=== PATIENT | female | born 1990 | race Caucasian/White ===

== ENCOUNTER → 2016-04-14 | Outpatient (CLI) | payer BC, OTHER ==
[~2016-04-14] MED LIST: CITA10TA8 PO; FENO48TA9 PO; NORGTAB39 PO
[2016-04-14 12:41] LABS: ALKALINE PHOSPHATASE 57 U/L (45-117); ALT/SGPT 28 U/L (12-78); AST/SGOT 20 U/L (15-37); BLOOD UREA NITROGEN 13 mg/dl (7-18); CALCIUM 8.9 mg/dl (8.5-10.1); CARBON DIOXIDE 23 mmol/L (21-32); CHLORIDE 108 mmol/L (98-107); CREATININE 0.75 mg/dl (0.60-1.20); GLUCOSE 98 mg/dl (70-99); HDL CHOLESTEROL 38 mg/dl; POTASSIUM 3.9 mmol/L (3.5-5.1); SODIUM 141 mmol/L (136-145)
[2016-04-14 12:58] LABS: ESTIMATED AVERAGE GLUCOSE 117 mg/dl; HA1C FLAG Normal (Normal)
[2016-04-14 13:04] LABS: CHOLESTEROL 147 mg/dl (0-200); CHOLESTEROL/HDL RATIO 3.9; LDL CHOLESTEROL CALCULATED 77 mg/dl; TRIGLYCERIDES 161 mg/dl (0-150); VERY LOW DENSITY LIPOPROT CALC 32 mg/dl
== END | disposition home or self-care (01) ==
LOC: C.LABBFT 09:00
PROVIDERS: ATTEND Nurse Practitioner
DX: E78.1 Pure hyperglyceridemia (principal); E88.81 Metabolic syndrome and other insulin resistance; N93.9 Abnormal uterine and vaginal bleeding, unspecified

== ENCOUNTER 2017-02-20 14:46 | Emergency (ER) | payer OTHER ==
[~2017-02-20] VITALS: Ht 152.4 cm; Wt 123.1 kg
[~2017-02-20 14:46] MED LIST changes: +ESCI1TAB10 PO; +GLC/500 PO; +MULT-506 PO; -NORGTAB39 PO
[2017-02-20 14:51] VITALS: TEMP 36.7; Ht 152.4 cm; Wt 123.1 kg
[2017-02-20] MEDS ORDERED: SODIUM CHLORIDE 0.9% 1000ML 1,000 ML IV STA (15:12)
[2017-02-20] MEDS ORDERED: MoRPHine SULFATE 2 MG/ML CARP IV STA (15:12)
[2017-02-20] MEDS ORDERED: ONDANSETRON INJ 2 MG/ML 2 ML VIAL IV STA (15:12)
[2017-02-20 15:32] LABS: URINE APPEARANCE CLEAR (CLEAR); URINE BILIRUBIN NEG (NEG); URINE COLOR YELLOW; URINE NITRITE NEG (NEG); URINE PH 7.5 (4.5-7.5); URINE SPECIFIC GRAVITY 1.011 (1.000-1.030); UROBILINOGEN NEG (NEG)
[2017-02-20 15:33] LABS: MANUAL MICROSCOPIC REQUIRED? NO; REVIEW REQ? NO
--- NOTE | 2017-02-20 15:33 | DIAGNOSTIC IMAGING REPORT ---
CHEST ONE VIEW PORTABLE HISTORY: 26 years-old Female CHEST PAIN acute atypical chest pain with shortness of breath COMPARISON: Chest radiograph 08/12/2014 TECHNIQUE: Portable upright AP view of the chest FINDINGS: Cardiac silhouette upper limits of normal. No pneumothorax, pleural effusion, focal airspace consolidation or overt pulmonary edema. Bones of the chest appear grossly intact. IMPRESSION: No acute cardiopulmonary process. The above report was generated using voice recognition software. It may contain grammatical, syntax or spelling errors. Electronically signed by: Javi Farfan M.D. 02/20/2017 3:32 PM Dictated Date/Time: 02/20/2017 3:31 PM
[2017-02-20 15:57] LABS: POINT OF CARE TROPONIN I < 0.030 ng/ml (0-0.045)
[2017-02-20 16:00] LABS: BASO % 0.7 %; BASO ABS # 0.09 K/uL (0-0.2); COMPLETE YES; EOS % 4.7 %; HEMATOCRIT 38.8 % (37-47); IG% 0.2 %; LYMPH % 34.3 %; LYMPH ABS # 4.15 K/uL (1.2-3.4); MEAN CORPUSCULAR HEMOGLOBIN 29.7 pg (25-34); MEAN CORPUSCULAR HGB CONC 34.5 g/dl (32-36); MEAN PLATELET VOLUME 9.2 fL (7.4-10.4); MONO % 6.1 %; PLATELET COUNT 326 K/uL (130-400); RED BLOOD COUNT 4.51 M/uL (4.2-5.4); WHITE BLOOD COUNT 12.09 K/uL (4.8-10.8)
[2017-02-20 16:15] LABS: ALT/SGPT 52 U/L (12-78); AST/SGOT 33 U/L (15-37); BLOOD UREA NITROGEN 13 mg/dl (7-18); BUN/CREATININE RATIO 18.3 (10-20); CALCIUM 9.1 mg/dl (8.5-10.1); CARBON DIOXIDE 29 mmol/L (21-32); CHLORIDE 104 mmol/L (98-107); CREATININE 0.73 mg/dl (0.60-1.20); GLUCOSE 107 mg/dl (70-99); POTASSIUM 3.7 mmol/L (3.5-5.1); SODIUM 139 mmol/L (136-145)
[2017-02-20 16:18] LABS: ALKALINE PHOSPHATASE 64 U/L (45-117)
[2017-02-20 16:27] LABS: PREG INTERNAL NEGATIVE QC NEG CLEAR BACKGROUND; PREG INTERNAL POSITIVE QC POS CONTROL LINE
[2017-02-20] MEDS ORDERED: OPTIRAY 320 IV PRN (16:30)
--- NOTE | 2017-02-20 17:24 | DIAGNOSTIC IMAGING REPORT ---
CT ANGIOGRAPHY OF THE CHEST, PULMONARY EMBOLUS PROTOCOL CLINICAL HISTORY: Chest pain and elevated d-dimer. Shortness of breath. COMPARISON STUDY: Chest CT August 12, 2014 and chest radiograph performed earlier today. TECHNIQUE: Following IV administration of 102 mL of Optiray-320, helical axial images of the chest were obtained utilizing the pulmonary embolus protocol. Maximal intensity projections and sagittal and coronal reformats were viewed on an independent 3D workstation. IV contrast was administered without complication. A dose lowering technique was utilized adhering to the principles of ALARA. CT DOSE: 574.09 mGy.cm FINDINGS: No pulmonary emboli are identified. Size of the heart is at the upper limits of normal. There is no evidence of thoracic aortic dissection. No enlarged thoracic lymph nodes are present. Central airways are patent. No pneumothorax or pleural effusion is present. There is no consolidation to suggest pneumonia. Fatty infiltration of the liver is noted. IMPRESSION: 1. No pulmonary emboli identified. 2. No acute intrathoracic findings. 3. Fatty infiltration of the liver. Electronically signed by: Gilberto Fontaine M.D. 02/20/2017 5:23 PM Dictated Date/Time: 02/20/2017 5:14 PM
[2017-02-20 18:00] VITALS: BP 128/68; PULSE 69; O2SAT 100
--- NOTE | 2017-02-20 21:04 | EMERGENCY ROOM VISIT NOTE ---
ED Visit Note First contact with patient: 14:57 Chief Complaint: I'm having chest pain and shortness of breath. History of Present Illness: Ms. Graham is a 26 year-old white female who ambulates into the ED accompanied by female friend complaining of chest pain and shortness of breath. Historically patient reports denies history of heart disease and family heart disease. She does have a history of diabetes and hypertension. Patient reports going to bed last evening approximately 10 PM, approximate 15 hours ago, and as she was lying down she developed an achy pain over the right sternal border and started feeling short of breath. Since that time her pain has been constant but gradually return increasing in intensity. She did not take any medications for her symptoms prior to arrival at the hospital. Patient reports since waking this morning her pain has become sharp at the same location and is radiating into the thoracic back. Currently she rates her discomfort 7/10. Her pain worsens with palpation of the chest wall. She has not identified any alleviating factors related to the pain. Associated with her pain she feel reports she has been having intermittent and transient episodes of palpitations, she has been nauseated but has not vomited. And notes that she has had swelling of her fingers over the last few days. She denies fevers, chills, sweats, skin eruptions, skin color changes, lightheadedness, dizziness, upper respiratory tract symptoms, orthopnea, previous clots, claudication, cramping, recent surgery/inactivity/extended travel, estrogen and tobacco use, abdominal pain. Review of Systems: As noted above in history of present illness. All body systems were reviewed and found to be negative as noted above. Past Medical History: As noted above and pneumonia, pyelonephritis and status post section, partial nephrectomy and wisdom teeth extraction. Current Medications: Lexapro, Glucophage, TriCor and multivitamins. Allergies to Medications: Bactrim. Social History: She is currently employed; she feels safe in her home environment; she admits to tobacco and alcohol use. Physical Examination: Vital Signs: Date Time Temp Pulse Resp B/P (MAP) Pulse Ox O2 Delivery O2 Flow Rate FiO2 02/20/17 18:00 69 20 128/68 100 Room Air 02/20/17 16:30 74 18 128/71 99 02/20/17 15:15 70 02/20/17 14:51 36.7 80 17 137/70 99 Room Air GENERAL: 26-year-old female in mild distress due to pain, nontoxic-appearing, afebrile and hemodynamically stable. NEUROLOGICAL: Awake, alert and oriented to person, place and time. Answering questions appropriately and following commands. Normal gait. Good hand eye coordination. SKIN: Warm, dry and pink. No soft tissue eruptions or trauma noted. HEENT: Atraumatic and normocephalic. PERRLA. Sclera white and conjunctiva pink. Oral cavity moist and pink. Pharynx is nonerythematous or edematous. Speech normal. No lymphadenopathy. Trachea midline. No jugular venous distention. No carotid bruits. BACK: No tenderness over the bony spine. Tenderness in the right paraspinous muscles just lateral to the spine of the scapula. No palpable spasm. No CVA tenderness. THORAX: Lungs sounds are clear to auscultation and equal bilaterally with symmetrical chest wall. No wheezing, rales or rhonchi. Moderate tenderness over the right sternal border without bony deformity, bony crepitus, ecchymosis , swelling or subcutaneous air. HEART: Regular rate and rhythm. No gallops, rubs or murmurs are appreciated. No lifts, heaves or thrills. PMI is not displaced. ABDOMEN: Obese, soft and nontender. Positive bowel sounds in all quadrants. No guarding, rigidity or organomegaly. EXTREMITIES: Moves all extremities well on command and with purpose. All distal neurovascular statuses are intact and equal bilaterally. No dependent edema or calf tenderness/cords. ED Course: Patient is assessed as noted above. Laboratory Testing: Test 02/20/17 15:05 02/20/17 15:30 02/20/17 15:37 Range/Units Urine Color YELLOW Urine Appearance CLEAR CLEAR Urine pH 7.5 4.5-7.5 Urine Specific Upper Tract 1.011 1.000-1.030 Urine Protein NEG NEG Urine Glucose (UA) NEG NEG Urine Ketones NEG NEG Urine Occult Blood NEG NEG Urine Nitrite NEG NEG Urine Bilirubin NEG NEG Urine Urobilinogen NEG NEG Urine Leukocyte Esterase NEG NEG White Blood Count 12.09 4.8-10.8 K/uL Red Blood Count 4.51 4.2-5.4 M/uL Hemoglobin 13.4 12.0-16.0 g/dL Hematocrit 38.8 37-47 % Mean Corpuscular Volume 86.0 80-100 fL Mean Corpuscular Hemoglobin 29.7 25-34 pg Mean Corpuscular Hemoglobin Concent 34.5 32-36 g/dl Platelet Count 326 130-400 K/uL Mean Platelet Volume 9.2 7.4-10.4 fL Neutrophils (%) (Auto) 54.0 % Lymphocytes (%) (Auto) 34.3 % Monocytes (%) (Auto) 6.1 % Eosinophils (%) (Auto) 4.7 % Basophils (%) (Auto) 0.7 % Neutrophils # (Auto) 6.51 1.4-6.5 K/uL Lymphocytes # (Auto) 4.15 1.2-3.4 K/uL Monocytes # (Auto) 0.74 0.11-0.59 K/uL Eosinophils # (Auto) 0.57 0-0.5 K/uL Basophils # (Auto) 0.09 0-0.2 K/uL RDW Standard Deviation 40.8 36.4-46.3 fL RDW Coefficient of Variation 13.0 11.5-14.5 % Immature Granulocyte % (Auto) 0.2 % Immature Granulocyte # (Auto) 0.03 0.00-0.02 K/uL Sodium Level 139 136-145 mmol/L Potassium Level 3.7 3.5-5.1 mmol/L Chloride Level 104 98-107 mmol/L Carbon Dioxide Level 29 21-32 mmol/L Anion Gap 6.0 3-11 mmol/L Blood Urea Nitrogen 13 7-18 mg/dl Creatinine 0.73 0.60-1.20 mg/dl Est Creatinine Clear Calc Drug Dose 139.9 ml/min Estimated GFR () 130.8 Estimated GFR (Non- 112.9 BUN/Creatinine Ratio 18.3 10-20 Random Glucose 107 70-99 mg/dl Calcium Level 9.1 8.5-10.1 mg/dl Total Bilirubin 0.4 0.2-1 mg/dl Direct Bilirubin < 0.1 0-0.2 mg/dl Aspartate Amino Transf (AST/SGOT) 33 15-37 U/L Alanine Aminotransferase (ALT/SGPT) 52 12-78 U/L Alkaline Phosphatase 64 45-117 U/L Total Protein 7.3 6.4-8.2 gm/dl Albumin 3.5 3.4-5.0 gm/dl Lipase 141 73-393 U/L Human Chorionic Gonadotropin, Qual NEG NEG Bedside D-Dimer > 450 0-450 ng/mlFEU Bedside Troponin I < 0.030 0-0.045 ng/ml EKG: Was read by myself and shows normal sinus rhythm with sinus arrhythmia. Ventricular rate 73 bpm. Normal axis, intervals and complexes. No acute ST changes indicating ischemia, injury or infarction. This was compared to previous from August 2014 in no acute changes were noted. Chest X-Rays: Were read by myself and the radiologist showing no acute infiltrates, effusions or pneumothorax. Normal heart silhouette and bony anatomy. Chest CTA: Was reviewed by myself and read by the radiologist showing no evidence of pulmonary emboli or acute intrathoracic findings. Patient was hydrated with normal saline and she received 2 mg of morphine IV for pain and 4 mg of Zofran IV. Patient was reassessed multiple times during her stay in the emergency department. Patient's case was reviewed with Dr. Mcwilliams; we agreed on diagnostic approach, treatment, disposition and plan. Patient was educated about today's findings and instructed on her treatment plan ; she verbalized understanding and agreement with this plan. Clinical Impression: Right sided chest pain. Decision-Making: A shunt my differential diagnosis I considered pulmonary embolism, musculoskeletal strain, myocarditis, pericarditis, acute coronary syndrome, thoracic aneurysm, pneumothorax and other causes. Disposition: Patient discharged home in stable condition accompanied by her ; prior to departure she was reassessed and subjectively reported she was feeling much better and rated her discomfort 2/10. She reported resolution of her shortness of breath and nausea. Plan: Patient was encouraged to alternate ibuprofen and acetaminophen as needed for pain every 3 hours. Patient was encouraged to continue her other medications as prescribed. Patient was encouraged to follow-up with family physician for recheck and possible referral to cardiology. Patient was encouraged return ED for worsening/uncontrolled pain, worsening/ uncontrolled shortness of breath, vomiting, fevers or any new/concerning symptoms.
== END 2017-02-20 18:04 | disposition home or self-care (01) ==
LOC: C.EDB 14:47 → C.EDC 18:04
DX: R07.9 Chest pain, unspecified (principal); E11.9 Type 2 diabetes mellitus without complications; I10 Essential (primary) hypertension; Z87.01 Personal history of pneumonia (recurrent); Z72.0 Tobacco use; Z79.899 Other long term (current) drug therapy

== ENCOUNTER 2020-06-23 12:44 | Observation (INO) ==
[2020-06-23] MEDS ORDERED: SODIUM CHLORIDE 0.9% 1000ML 1,000 ML IV STA (13:17)
[2020-06-23 13:49] LABS: Basophils # (auto) 0.04 K/uL (0-0.2); Basophils % (auto) 0.2 %; Eosinophils % (auto) 0.6 %; Hematocrit (blood only) 36.6 % (37-47); Immature Granulocytes # (auto) 0.05 K/uL (0.00-0.02); Immature Granulocytes % (auto) 0.3 %; Lymphocytes # (auto) 2.82 K/uL (1.2-3.4); Lymphocytes % (auto) 16.1 %; Mean Corpuscular Hemoglobin 30.4 pg (25-34); Mean Corpuscular Hgb Conc 35.5 g/dL (32-36); Mean Corpuscular Volume 85.7 fL (80-100); Monocytes # (auto) 1.37 K/uL (0.11-0.59); Monocytes % (auto) 7.8 %; Neutrophils # (auto) 13.09 K/uL (1.4-6.5); Platelet Count 392 K/uL (130-400); RDW Coefficient of Variation 13.4 % (11.5-14.5); RDW Standard Deviation 41.7 fL (36.4-46.3); Red Blood Count 4.27 M/uL (4.2-5.4); White Blood Count 17.47 K/uL (4.8-10.8)
[2020-06-23] MEDS ORDERED: ACETAMINOPHEN 1,000 MG/100 ML VIAL IV STA (13:51)
--- NOTE | 2020-06-23 13:51 | Emergency Department Note ---
Impression & Plan Pyelonephritis affecting in first trimester ED Provider Note CHIEF COMPLAINT: Right flank pain, nausea/vomiting, + HISTORY OF PRESENTING ILLNESS: This is a 30-year-old female who presents to the emergency department by private vehicle with complaint of right-sided abdominal and flank pain for the past 2 to 3 days that has been progressively worsening. She states the pain started in her right lower to mid abdomen and is now radiating up towards her right middle back, it has been constant and more severe, she currently rates the pain 6/10. She has been taking Tylenol for the pain with some improvement. She notes that her pain got significantly worse today and she has now been having a lot of nausea and vomiting, noting she has been having difficulty keeping down even fluids today. She states that she has been vomiting bile. She denies a fever or chills. She denies diarrhea or constipation. She denies any vaginal bleeding or spotting or abnormal discharge . She denies any chest pain, chest tightness, shortness of breath, dizziness or syncope. REVIEW OF SYSTEMS: A complete 10 point review of systems was reviewed with the patient with pertinent positives and negatives as per history of present illness. All else were negative. PAST MEDICAL HISTORY: Prediabetes, anxiety SOCIAL HISTORY: Lives at home, she is a current everyday smoker, but notes that she quit 2 days ago ALLERGIES: Reviewed in chart and with the PHYSICAL EXAM: CONSTITUTIONAL: Pleasant and cooperative. Nontoxic-appearing and in no acute distress. Mildly dehydrated, but otherwise well appearing and well nourished. HEENT: Normocephalic, atraumatic. Pharynx normal. Tacky mucous membranes. NECK: Supple, full active range of motion without discomfort. RESPIRATORY: Clear to auscultation bilaterally with no wheezing, crackles, rhonchi or stridor. Equal expansion bilaterally. CARDIOVASCULAR: Regular rate and rhythm with no murmurs, rubs or gallops. Normal peripheral perfusion. No edema. GASTROINTESTINAL: Tender to palpation in the suprapubic, right lower quadrant, and right flank abdomen. No rebound tenderness or guarding. Soft, nondistended, obese abdomen. No palpable masses or HSM. Bowel sounds present in all quadrants. Right-sided CVA tenderness to percussion, no left CVA tenderness. MUSCULOSKELETAL: Full range of motion of all joints without discomfort. INTEGUMENTARY: No rash or other significant dermatologic conditions noted. NEUROLOGIC: Alert and oriented X 4 with normal affect. Normal strength and sensation in all 4 extremities. Normal speech. Normal gait observed. ED COURSE AND MEDICAL DECISION MAKING: CC: Patient presenting with complaint of right flank/abdominal pain, nausea/vomiting, DIFFERENTIAL DIAGNOSIS: Includes, but not limited to UTI, pyelonephritis, ureteral stone, ectopic , threatened miscarriage, cholecystitis, cholelithiasis, pancreatitis, GERD, gastritis, gastroenteritis, hyperemesis gravidarum, dehydration, electrolyte abnormality, among others. INTERPRETATION OF LABS: Leukocytosis with left shift, no anemia, normal platelets, no significant electrolyte abnormalities, normal renal function, normal liver enzymes and lipase. Serum has approximately doubled since previous labs 2 days ago. UA appears improved, but still with WBCs, leuk esterase, and blood. COVID-19 test negative. IMAGING: ABDOMINAL ULTRASOUND, RIGHT UPPER QUADRANT HISTORY: right flank pain. COMPARISON: Abdominal ultrasound 08/07/2018. FINDINGS: Pancreas: The pancreatic head and tail are obscured by overlying bowel gas. The remaining portions of the pancreas are within normal limits. Liver: The liver is echogenic consistent with fatty change. 21 cm in length. Gallbladder: No gallbladder wall thickening. No gallstones. There are few punctate echogenic foci within the gallbladder wall with ring down artifact. This favors adenomyomatosis. CBD: 2 mm. Right kidney: Small stones within the lower pole the right kidney. No hydronephrosis. IMPRESSION: 1. Hepatomegaly demonstrating fatty change. 2. No gallbladder wall thickening. No gallstones. Suspect adenomyomatosis. 3. Right-sided nephrolithiasis. No hydronephrosis. ----- RENAL ULTRASOUND CLINICAL HISTORY: right flank pain, UTI, + preg COMPARISON STUDY: CT of the abdomen and pelvis February 09, 2017. TECHNIQUE: Sonography of the kidneys and the urinary bladder was performed. FINDINGS: Right kidney measures 13.1 cm in maximal dimension and the left measures 11.5 cm. There is mild right collecting system dilatation which is similar to CT of February 09, 2017. Multiple right renal calculi measure up to approximately 8 mm. There are no left renal calculi. Neither ureteral jet was identified. Bladder suboptimally assessed given underdistention. IMPRESSION: 1. Mild right collecting system dilatation. 2. Right-sided nephrolithiasis. ----- PELVIC ULTRASOUND CLINICAL HISTORY: right flank/abd pain, + preg COMPARISON STUDY: Pelvic ultrasound June 21, 2020. TECHNIQUE: Transabdominal and transvaginal sonography of the pelvis was performed. FINDINGS: This exam is compromised by suboptimal penetration. The uterus measures 10.6 x 5 x 5.4 cm. Endometrium measures approximately 8 mm in thickness. There is possible visualization of an intrauterine gestational sac. If this represents a gestational sac, the mean sac diameter is 0.48 cm. The right ovary measures 3 x 4.2 x 2.7 cm and the left ovary measures 3 x 2.3 x 2.2 cm. There is no adnexal mass. There is no free fluid. Color flow is identified within each ovary. IMPRESSION: 1. Exam compromised by suboptimal penetration. Possible visualization of a tiny intrauterine gestational sac with a mean sac diameter 0.48 cm. Clinical follow- up, including serial beta hCG levels, and follow-up pelvic ultrasound is recommended. 2. No adnexal mass identified. No free fluid. MEDICATION RECONCILIATION: I attest that I have personally reviewed the patient's current medication list. INITIAL VITAL SIGNS REVIEW: I reviewed the patient's initial vital signs and interpret them as follows: T: Afebrile; BP: Normotensive; HR: Mildly tachycardic; RR: Within normal limits; Pulse Ox: Within normal limits on room air. MDM SUMMARY: Patient was evaluated at bedside, history and physical exam performed. Patient is alert and oriented, in no acute distress, resting calmly in stretcher. She is afebrile and nontoxic-appearing, but does appear to be mildly dehydrated. The abdomen is tender to palpation mostly in the right flank with right-sided CVA tenderness. No acute abdomen. Review of the patient's chart, noting her recent ED visit 2 days ago. There was no identified IUP on ultrasound at the time. Beta hCG quant was 959. Urine culture was also reviewed, noting that it is positive for Proteus mirabilis, which is pansensitive. Orders were placed at bedside for labs including a repeat beta quant, UA, IV fluid bolus for hydration, IV Tylenol for pain, ultrasound imaging of the pelvic/transvaginal, right renal, and gallbladder to evaluate for right flank/abdominal pain. Given the UTI and persisting/progressing right flank and CVA tenderness, I suspect this may be a UTI progressing to pyelonephritis. 2 g IV Rocephin were ordered for this. Patient discussed with Dr. Amador, who agrees with my assessment, plan, and disposition. Labs and imaging reviewed as above, labs are notable for leukocytosis, which appears to be slightly improved from 2 days ago. Beta quant has doubled. UA appears to be improving, but still with signs of infection. Ultrasound imaging as above, gallbladder appears unremarkable. There is right- sided nephrolithiasis, but no evidence for hydronephrosis or other obstructive pattern. Pelvic ultrasound demonstrates a suspected tiny intrauterine gestational sac, there is no free fluid or adnexal mass noted. I feel it is less likely that she has an ectopic and more likely that she has pyelonephritis. The patient was discussed with Dr. Salgado, [facility], who felt it was reasonable for the patient to be admitted for her developing pyelonephritis in the setting of her . I spoke with Dr. Peacock, [facility] hospitalist, who agrees to evaluate the patient for admission. Patient reassessed multiple times throughout ED stay, she has remained hemodynamically stable and afebrile, and reports that her pain is improved after the IV Tylenol. The patient was updated on all results and plan for admission/observation, all questions were answered to the best of my ability and the patient was agreeable to this plan. The patient was stable at time of admission. The chart was completed utilizing [employer] Speech voice recognition software. Grammatical errors, random word insertions, pronoun errors, and incomplete sentences are an occasional consequence of this system due to software limitations, ambient noise, and hardware issues. Any formal questions or concerns about the content, text, or information contained within the body of this dictation should be directly addressed to the nurse practitioner for clarification. Past Med/Surg History Medical History Depression with anxiety Hypertriglyceridemia PCOS (polycystic ovarian syndrome) PNA (pneumonia) Surgical History History of kidney surgery Hx of section Family History Grandmother (Paternal) Diabetes Social History Smoking Status: Current every day smoker Tobacco Type: Cigarettes Preferred Language: Khmer Feels Safe at Home: Yes Allergies Allergies Allergy/AdvReac Type Severity Reaction Status Date / Time Bactrim Allergy Intermediate RASH Verified 02/20/17 16:13 sulfamethoxazole Allergy Intermediate RASH Verified 06/23/20 15:54 trimethoprim Allergy Intermediate RASH Verified 06/23/20 15:54 Home Meds Home Medications Medication Instructions Recorded Confirmed multivitamin 1 tab PO QAM 06/21/20 06/23/20 acetaminophen 1,000 mg PO Q6H PRN 06/23/20 06/23/20 duloxetine 40 mg PO QPM 06/23/20 06/23/20 metformin 1,000 mg PO QAM 06/23/20 06/23/20 Previous Rx's Medication Instructions Recorded norgestimate 0.18 mg/0.215 mg/0.25 1 tab PO DAILY #28 tab 01/01/20 mg-ethinyl estradiol 25 mcg tablet cephalexin 500 mg PO BID 7 Days #14 cap 06/21/20 Results & Data (ED) Vital Signs Vital Signs - 24 hr 06/23/20 12:49 06/23/20 14:50 06/23/20 15:24 Temperature 36.4 C L Temperature Source Temporal Artery Scan Pulse Rate 103 H Pulse Rate [Finger] 86 94 H Respiratory Rate 16 20 20 Respiratory Effort / Characteristics Non-Labored Spontaneous Non-Labored Spontaneous Respiratory Depth Normal Normal Respiratory Pattern Regular Blood Pressure 134/81 Blood Pressure [Right Arm] 139/81 122/76 Blood Pressure Mean 98 Blood Pressure Mean [Right Arm] 100 91 Blood Pressure Position Sitting Pulse Oximetry 100 100 99 Oxygen Delivery Method Room Air Room Air Room Air Sepsis Recent Fever Within 48 Hours No Sepsis New/Unexplained Change in Mental Status No Sepsis Action Taken by Nursing No Action Required 06/23/20 16:30 Temperature Temperature Source Pulse Rate Pulse Rate [Finger] 94 H Respiratory Rate 18 Respiratory Effort / Characteristics Non-Labored Spontaneous Respiratory Depth Normal Respiratory Pattern Regular Blood Pressure Blood Pressure [Right Arm] 104/70 Blood Pressure Mean Blood Pressure Mean [Right Arm] 81 Blood Pressure Position Pulse Oximetry 100 Oxygen Delivery Method Room Air Sepsis Recent Fever Within 48 Hours Sepsis New/Unexplained Change in Mental Status Sepsis Action Taken by Nursing Laboratory Data Result diagrams: 06/23/20 13:32 06/23/20 13:32 Lab Results 06/23/20 06/23/20 06/23/20 Range/Units 13:32 13:32 13:32 WBC 17.47 H (4.8-10.8) K/uL RBC 4.27 (4.2-5.4) M/uL Hgb 13.0 (12.0-16.0) g/dL Hct 36.6 L (37-47) % MCV 85.7 (80-100) fL MCH 30.4 (25-34) pg MCHC 35.5 (32-36) g/dL RDW Std Deviation 41.7 (36.4-46.3) fL RDW Coeff of Hai 13.4 (11.5-14.5) % Plt Count 392 (130-400) K/uL MPV 9.0 (7.4-10.4) fL Immature Gran % (Auto) 0.3 % Neut % (Auto) 75.0 % Lymph % (Auto) 16.1 % [place] % (Auto) 7.8 % Eos % (Auto) 0.6 % Baso % (Auto) 0.2 % Neut # (Auto) 13.09 H (1.4-6.5) K/uL Lymph # (Auto) 2.82 (1.2-3.4) K/uL [place] # (Auto) 1.37 H (0.11-0.59) K/uL Eos # (Auto) 0.10 (0-0.5) K/uL Baso # (Auto) 0.04 (0-0.2) K/uL Immature Gran # (Auto) 0.05 H (0.00-0.02) K/uL Sodium 137 (136-145) mmol/L Potassium 3.3 L (3.5-5.1) mmol/L Chloride 106 (98-107) mmol/L Carbon Dioxide 22 (21-32) mmol/L Anion Gap 9.0 (3-11) BUN 10 (7-18) mg/dl Creatinine 0.70 (0.6-1.2) mg/dl Est Cr Clr Drug Dosing 127.1 ml/min Est GFR ( Amer) 133.8 Est GFR (Non-Af Amer) 115.5 BUN/Creatinine Ratio 13.7 (10-20) Glucose 110 H (70-99) mg/dl Calcium 9.4 (8.5-10.1) mg/dl Total Bilirubin 0.6 (0.2-1) mg/dl AST 14 L (15-37) U/L ALT 25 (12-78) U/L Alkaline Phosphatase 65 (45-117) U/L Total Protein 7.6 (6.4-8.2) gm/dl Albumin 3.7 (3.4-5.0) gm/dl Globulin 3.9 (2.5-4.0) gm/dl Albumin/Globulin Ratio 1.0 (0.9-2) Lipase 65 L (73-393) U/L HCG, Quant 1916 mIU/ml Urine Color Urine Appearance (Clear) Urine pH (4.5-7.5) Ur Specific [place] (1.000-1.030) Urine Protein (Negative) Urine Glucose (UA) (Negative) Urine Ketones (Negative) Urine Blood (Negative) Urine Nitrite (Negative) Urine Bilirubin (Negative) Urine Urobilinogen (Negative) Ur Leukocyte Esterase (Negative) Urine WBC (Auto) (0-5) /hpf Urine RBC (Auto) (0-4) /hpf U Hyaline Cast (Auto) (0-5) /lpf U Epithel Cells (Auto) (0-5) /lpf Urine Bacteria (Auto) (Negative) COVID-19 Eval Order SARS-CoV-2, RNA, NAAT (NEGATIVE) 06/23/20 06/23/20 06/23/20 Range/Units 15:25 16:45 16:45 WBC (4.8-10.8) K/uL RBC (4.2-5.4) M/uL Hgb (12.0-16.0) g/dL Hct (37-47) % MCV (80-100) fL MCH (25-34) pg MCHC (32-36) g/dL RDW Std Deviation (36.4-46.3) fL RDW Coeff of Hai (11.5-14.5) % Plt Count (130-400) K/uL MPV (7.4-10.4) fL Immature Gran % (Auto) % Neut % (Auto) % Lymph % (Auto) % [place] % (Auto) % Eos % (Auto) % Baso % (Auto) % Neut # (Auto) (1.4-6.5) K/uL Lymph # (Auto) (1.2-3.4) K/uL [place] # (Auto) (0.11-0.59) K/uL Eos # (Auto) (0-0.5) K/uL Baso # (Auto) (0-0.2) K/uL Immature Gran # (Auto) (0.00-0.02) K/uL Sodium (136-145) mmol/L Potassium (3.5-5.1) mmol/L Chloride (98-107) mmol/L Carbon Dioxide (21-32) mmol/L Anion Gap (3-11) BUN (7-18) mg/dl Creatinine (0.6-1.2) mg/dl Est Cr Clr Drug Dosing ml/min Est GFR ( Amer) Est GFR (Non-Af Amer) BUN/Creatinine Ratio (10-20) Glucose (70-99) mg/dl Calcium (8.5-10.1) mg/dl Total Bilirubin (0.2-1) mg/dl AST (15-37) U/L ALT (12-78) U/L Alkaline Phosphatase (45-117) U/L Total Protein (6.4-8.2) gm/dl Albumin (3.4-5.0) gm/dl Globulin (2.5-4.0) gm/dl Albumin/Globulin Ratio (0.9-2) Lipase (73-393) U/L HCG, Quant mIU/ml Urine Color Yellow Urine Appearance Clear (Clear) Urine pH 6.5 (4.5-7.5) Ur Specific [place] 1.017 (1.000-1.030) Urine Protein Negative (Negative) Urine Glucose (UA) Negative (Negative) Urine Ketones 2+ H (Negative) Urine Blood 1+ H (Negative) Urine Nitrite Negative (Negative) Urine Bilirubin Negative (Negative) Urine Urobilinogen Negative (Negative) Ur Leukocyte Esterase 1+ H (Negative) Urine WBC (Auto) 10-30 H (0-5) /hpf Urine RBC (Auto) 0-4 (0-4) /hpf U Hyaline Cast (Auto) 0 (0-5) /lpf U Epithel Cells (Auto) 10-20 H (0-5) /lpf Urine Bacteria (Auto) Negative (Negative) COVID-19 [facility] SARS-CoV-2, RNA, NAAT NEGATIVE (NEGATIVE) Administered Medications Sodium Chloride (Nss 1000ml) 1,000 mls @ 999 mls/hr IV .Q1H1M ONE Stop: 06/23/20 17:35 Last Admin: 06/23/20 16:30 Dose: 999 mls/hr Documented by: Discontinued Medications Sodium Chloride (Nss 1000ml) 1,000 mls @ 999 mls/hr IV .Q1H1M STA Stop: 06/23/20 14:17 Last Infusion: 06/23/20 15:06 Dose: 0 mls/hr Documented by: [id number] Admin: 06/23/20 13:41 Dose: 999 mls/hr Documented by: [id number] Acetaminophen (Ofirmev) 1,000 mg in 100 mls @ 400 mls/hr IV NOW STA Stop: 06/23/20 14:05 Last Infusion: 06/23/20 15:06 Dose: 0 mls/hr Documented by: [id number] Admin: 06/23/20 14:50 Dose: 400 mls/hr Documented by: [id number] Ceftriaxone Sodium (Rocephin) 2,000 mg in 70 mls @ 140 mls/hr IV NOW STA Stop: 06/23/20 15:23 Last Infusion: 06/23/20 15:54 Dose: 0 mls/hr Documented by: [id number] Admin: 06/23/20 15:24 Dose: 140 mls/hr Documented by: [id number] Discharge Plan Visit Data Chief Complaint: GI Assessment Stated Complaint: 4 weeks preg, liv said monday to come lab ED Provider: Omid Amador ED Midlevel Provider: Emelia Thompson Discharge Problem: Pyelonephritis affecting in first trimester Patient Disposition: Admitted As Inpatient Condition: Good Forms Stand Alone Forms: My [facility] Prescriptions Prescriptions: No Action norgestimate-ethinyl estradiol [Lqy-Iw-Exvikc] 0.18/0.215/0.25 mg-25 mcg tablet 1 tab PO DAILY Qty: 28 RF: 11 acetaminophen 500 mg Tablet 1,000 mg PO Q6H PRN (Reason: Pain) RF: 0 metformin 500 mg tablet 1,000 mg PO QAM RF: 0 duloxetine 40 mg capsule,delayed release(DR/EC) 40 mg PO QPM RF: 0 multivitamin Tablet 1 tab PO QAM RF: 0 cephalexin 500 mg capsule 500 mg PO BID 7 Days Qty: 14 RF: 0 Referrals Referrals: Dawna Segal CRNP [Primary Care Provider] -
[2020-06-23 14:17] LABS: Albumin Level 3.7 gm/dl (3.4-5.0); BUN Creatinine Ratio 13.7 (10-20); Calcium 9.4 mg/dl (8.5-10.1); Creatinine Clr Calc Pharmacy 127.1 ml/min; Est GFR (African American) 133.8; Est GFR (Non-African American) 115.5; Potassium 3.3 mmol/L (3.5-5.1)
[2020-06-23 14:19] LABS: Bilirubin,Total 0.6 mg/dl (0.2-1); Globulin 3.9 gm/dl (2.5-4.0); Total Protein 7.6 gm/dl (6.4-8.2)
[2020-06-23] MEDS ORDERED: cefTRIAXone SODIUM 2,000 MG/70 ML BAG IV STA (14:54)
--- NOTE | 2020-06-23 15:09 | Ultrasound Report ---
ABDOMINAL ULTRASOUND, RIGHT UPPER QUADRANT HISTORY: right flank pain. COMPARISON: Abdominal ultrasound 08/07/2018. FINDINGS: Pancreas: The pancreatic head and tail are obscured by overlying bowel gas. The remaining portions of the pancreas are within normal limits. Liver: The liver is echogenic consistent with fatty change. 21 cm in length. Gallbladder: No gallbladder wall thickening. No gallstones. There are few punctate echogenic foci wit hin the gallbladder wall with ring down artifact. This favors adenomyomatosis. CBD: 2 mm. Right kidney: Small stones within the lower pole the right kidney. No hydronephrosis. IMPRESSION: 1. Hepatomegaly demonstrating fatty change. 2. No gallbladder wall thickening. No gallstones. Suspect adenomyomatosis. 3. Right-sided nephrolithiasis. No hydronephrosis. ACT 112: Negative or not required by law. Electronically signed by: Julian Brewer M.D. 06/23/2020 3:08 PM
--- NOTE | 2020-06-23 15:09 | Ultrasound Report ---
RENAL ULTRASOUND CLINICAL HISTORY: right flank pain, UTI, + preg COMPARISON STUDY: CT of the abdomen and pelvis February 09, 2017. TECHNIQUE: Sonography of the kidneys and the urinary bladder was performed. FINDINGS: Right kidney measures 13.1 cm in maximal dimension and the left measures 11.5 cm. There is mild right collecting system dilatation which is similar to CT of February 09, 2017. Multiple right re nal calculi measure up to approximately 8 mm. There are no left renal calculi. Neither ureteral jet w as identified. Bladder suboptimally assessed given underdistention. IMPRESSION: 1. Mild right collecting system dilatation. 2. Right-sided nephrolithiasis. ACT 112: Negative or not required by law. Electronically signed by: Gilberto Fontaine M.D. 06/23/2020 3:08 PM
--- NOTE | 2020-06-23 15:12 | Ultrasound Report ---
PELVIC ULTRASOUND CLINICAL HISTORY: right flank/abd pain, + preg COMPARISON STUDY: Pelvic ultrasound June 21, 2020. TECHNIQUE: Transabdominal and transvaginal sonography of the pelvis was performed. FINDINGS: This exam is compromised by suboptimal penetration. The uterus measures 10.6 x 5 x 5.4 cm. Endometrium measures approximately 8 mm in thickness. There is possible visualization of an intrauter ine gestational sac. If this represents a gestational sac, the mean sac diameter is 0.48 cm. The righ t ovary measures 3 x 4.2 x 2.7 cm and the left ovary measures 3 x 2.3 x 2.2 cm. There is no adnexal m ass. There is no free fluid. Color flow is identified within each ovary. IMPRESSION: 1. Exam compromised by suboptimal penetration. Possible visualization of a tiny intrauterine gestatio nal sac with a mean sac diameter 0.48 cm. Clinical follow-up, including serial beta hCG levels, and f ollow-up pelvic ultrasound is recommended. 2. No adnexal mass identified. No free fluid. ACT 112: Negative or not required by law. Electronically signed by: Gilberto Fontaine M.D. 06/23/2020 3:11 PM
[2020-06-23 15:54] LABS: Appearance Urine Clear (Clear); Bacteria Urine Automated Negative (Negative); Bilirubin Urine Negative (Negative); Blood Urine 1+ (Negative); Cast Urine Automated 0 /lpf (0-5); Color Urine Yellow; Glucose Urine UA Negative (Negative); Ketones Urine 2+ (Negative); Leukocyte Esterase Urine 1+ (Negative); Nitrite Urine Negative (Negative); Protein Urine Negative (Negative); RBC Urine Automated 0-4 /hpf (0-4); Specific Gravity Urine 1.017 (1.000-1.030); Urobilinogen Urine Negative (Negative); pH Urine 6.5 (4.5-7.5)
[2020-06-23] MEDS ORDERED: SODIUM CHLORIDE 0.9% 1000ML 1,000 ML IV ONE ×2 (16:35→17:34)
[2020-06-23] MEDS ORDERED: POTASSIUM CHLORIDE CRTAB 20 MEQ TABCR PO STA (17:25)
--- NOTE | 2020-06-23 17:32 | History & Physical Report ---
Date of Service June 23, 2020 Assessment & Plan (1) Acute pyelonephritis: Continue ceftriaxone 2g IV daily Pansensitive Proteus on prior urine culture. Follow up urine and blood cultures Possibly exacerbated by ureterolithiasis therefore will strain urine (2) Prediabetes: Insulin for correction factor only. BSG ACHS (3) PCOS (polycystic ovarian syndrome): Hold metformin (4) Depression with anxiety: Continue duloxetine 40mg PO HS (5) First trimester : bHCG quant in 48 hours if patient is still inpatient Admission and Anticipated Discharge Date Admission Date: 06/23/2020 History of Present Illness Chief Complaint: Right flank pain Primary Care Provider: FUENTES John Osiel Adam is a 30-year-old (LMP May 27) who presents to the ER with ongoing right flank pain. She reports her pain started 3 days ago while going on a hike and it started with umbilical abdominal pain. Initially felt this may be musculoskeletal however the pain increased over the following day and she started having nausea and vomiting starting that night. She went to the ER 2 days ago and was diagnosed with a UTI and test was positive. 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 She was not given any antibiotics in the emergency room but discharged with Keflex. Unfortunately her pain has increased at times it appears to be renal colic causing her to need to pace around the room. Severity 10/10 at worst, currently 6/10. Improved with Tylenol IV given in the ER. Given her nausea and vomiting she has not been able to drink or eat much for the last 3 days. She has a prior history of an uncomplicated UTI many years ago. Prior kidney stone as a teenager - passed by itself. Current pain is in the same location as her previous kidney stone although this pain seems to be much worse. In the ER beta-hCG is appropriately rising. Possible visualization of a tiny intrauterine gestational sac on ultrasound. Renal ultrasound showed right-sided nephrolithiasis seen with mild right collecting system dilatation. White blood count mildly improved since 2 days ago from 20.4 to 17.5. She was diagnosed with acute pyelonephritis and treated with ceftriaxone. She was referred to medicine for admission and ongoing management of acute pyelonephritis in the setting of . Allergies Allergy/AdvReac Type Severity Reaction Status Date / Time Bactrim Allergy Intermediate RASH Verified 02/20/17 16:13 sulfamethoxazole Allergy Intermediate RASH Verified 06/23/20 15:54 trimethoprim Allergy Intermediate RASH Verified 06/23/20 15:54 Home Medications Medication Instructions Recorded Confirmed Type norgestimate 0.18 mg/0.215 mg/0.25 1 tab PO DAILY #28 tab 01/01/20 06/23/20 Rx mg-ethinyl estradiol 25 mcg tablet cephalexin 500 mg PO BID 7 Days #14 cap 06/21/20 06/23/20 Rx multivitamin 1 tab PO QAM 06/21/20 06/23/20 History acetaminophen 1,000 mg PO Q6H PRN 06/23/20 06/23/20 History duloxetine 40 mg PO QPM 06/23/20 06/23/20 History metformin 1,000 mg PO QAM 06/23/20 06/23/20 History Past Med/Surg History Medical History (Updated 06/23/20 @ 21:38 by Deny Peacock MD) Depression with anxiety Hypertriglyceridemia PCOS (polycystic ovarian syndrome) PNA (pneumonia) Surgical History History of kidney surgery Hx of section Family History Grandmother (Paternal) Diabetes Social History Smoking Status: Current every day smoker Tobacco Type: Cigarettes Cigarettes Per Day: 2; Second Hand Exposure: No; Do You Dip or Chew Tobacco: No; Tobacco Cessation Education Requested by Patient: No Hx Alcohol Use: Yes Alcohol type: beer and wine Hx Substance Use: No Preferred Language: Thai Communication Ability: Effective Wallpaper Inspector Required: No Beliefs That Will Affect Care: None Current Living Situation: Family Other Information That Helps Us Care for You: No Feels Safe at Home: Yes Safety Concerns: Feels Safe At This Time Assistive Devices: Glasses Review of Systems Review of Systems: All systems reviewed & are unremarkable except as noted in HPI & below Physical Exam Constitutional: WD/WN, vitals as above Eyes: + anicteric sclerae; normal pupil size ENMT: external ear and nose normal, oropharynx normal Neck: trachea midline Respiratory: normal respiratory effort, lungs clear to auscultation Cardiovascular: RRR, no murmur, no edema Gastrointestinal (Abdomen): normal bowel sounds, soft, nontender, no hepatosplenomegaly Musculoskeletal: no cyanosis or clubbing, extremities motor strength 5/5 Skin: no rashes, warm and dry Neurologic: moves all extremities and awake; not confused Psychiatric: A+Ox3, euthymic affect Genitourinary: + CVA tenderness (Right) Results & Data Results & Data ([facility]) Vital Signs (Past 12 Hours) Vital Signs Temp Pulse Pulse Resp BP BP Pulse Ox 06/23/20 16:30 94 H 18 104/70 100 06/23/20 15:24 94 H 20 122/76 99 06/23/20 14:50 86 20 139/81 100 06/23/20 12:49 36.4 C L 103 H 16 134/81 100 Diagnostic Findings ABDOMINAL ULTRASOUND, RIGHT UPPER QUADRANT IMPRESSION: 1. Hepatomegaly demonstrating fatty change. 2. No gallbladder wall thickening. No gallstones. Suspect adenomyomatosis. 3. Right-sided nephrolithiasis. No hydronephrosis. PELVIC ULTRASOUND IMPRESSION: 1. Exam compromised by suboptimal penetration. Possible visualization of a tiny intrauterine gestational sac with a mean sac diameter 0.48 cm. Clinical follow- up, including serial beta hCG levels, and follow-up pelvic ultrasound is recommended. 2. No adnexal mass identified. No free fluid. RENAL ULTRASOUND IMPRESSION: 1. Mild right collecting system dilatation. 2. Right-sided nephrolithiasis. Medications Administered ER medications given: NSS 1 hour bolus Acetaminophen 1 g IV Ceftriaxone 2 g IV Code Status & VTE Plan Code Status Full VTE Prophylaxis Plan VTE Prophylaxis will be ordered: No PG Care Time/CCT Total # of Minutes Spent Total Time Spent with Patient: Total time spent is greater than 50% in coordination of care (as documented) at patient's floor/unit and/or counseling patient: Coding Level of Care Code 15517 Initial Inpt Care Lvl 3 Diagnoses Acute pyelonephritis N10 Prediabetes R73.03 PCOS (polycystic ovarian syndrome) E28.2 Depression with anxiety F41.8 First trimester Z34.91
[2020-06-23] MEDS ORDERED: oxyCODONE HCL IR 5 MG TAB (IMMEDIATE RELEASE) PO STA (18:54)
[2020-06-23] MEDS ORDERED: ACETAMINOPHEN 1,000 MG/100 ML VIAL IV PRN (20:44)
[2020-06-23] MEDS ORDERED: oxyCODONE HCL IR 5 MG TAB (IMMEDIATE RELEASE) PO PRN (20:44)
[2020-06-23] MEDS ORDERED: ACETAMINOPHEN 325 MG TAB PO PRN (20:44)
[2020-06-23] MEDS ORDERED: ONDANSETRON INJ 2 MG/ML 2 ML VIAL IV PRN (20:44)
[2020-06-23] MEDS ORDERED: CARBOHYDRATES FOR HYPOGLYCEMIA PO PRN (21:40)
[2020-06-23] MEDS ORDERED: GLUCOSE 10 TABS/TUBE PO PRN (21:40)
[2020-06-23] MEDS ORDERED: GLUCOSE 40% GEL 15 GM TUBE PO PRN (21:40)
[2020-06-23] MEDS ORDERED: GLUCAGON FOR INJ 1 MG VIAL SQ PRN (21:40)
[2020-06-23] MEDS ORDERED: DEXTROSE 50% 50 ML SYRINGE IV PRN (21:40)
[2020-06-23] MEDS: DULoxetine HCL 20 MG CAP PO SCH (22:21)
[2020-06-23] MEDS: NSS + 20MEQ KCL 20 MEQ/1,000 ML BAG IV SCH (22:22)
[2020-06-24] MEDS: NSS + 20MEQ KCL 20 MEQ/1,000 ML BAG IV SCH ×2 (05:49→15:55)
[2020-06-24 06:42] LABS: Basophils # (auto) 0.02 K/uL (0-0.2); Basophils % (auto) 0.2 %; Eosinophils # (auto) 0.13 K/uL (0-0.5); Hematocrit (blood only) 34.9 % (37-47); Hemoglobin 11.9 g/dL (12.0-16.0); Immature Granulocytes # (auto) 0.03 K/uL (0.00-0.02); Immature Granulocytes % (auto) 0.2 %; Lymphocytes # (auto) 3.09 K/uL (1.2-3.4); Lymphocytes % (auto) 24.2 %; Mean Corpuscular Hemoglobin 29.8 pg (25-34); Mean Corpuscular Hgb Conc 34.1 g/dL (32-36); Mean Corpuscular Volume 87.3 fL (80-100); Mean Platelet Volume 8.9 fL (7.4-10.4); Monocytes # (auto) 1.27 K/uL (0.11-0.59); Neutrophils # (auto) 8.22 K/uL (1.4-6.5); Neutrophils % (auto) 64.4 %; Platelet Count 321 K/uL (130-400); RDW Coefficient of Variation 13.6 % (11.5-14.5); RDW Standard Deviation 43.7 fL (36.4-46.3); White Blood Count 12.76 K/uL (4.8-10.8)
[2020-06-24 07:12] LABS: BUN Creatinine Ratio 7.8 (10-20); Calcium 8.2 mg/dl (8.5-10.1); Creatinine Clr Calc Pharmacy 144.1 ml/min; Est GFR (African American) 138.5; Est GFR (Non-African American) 119.5; Potassium 3.6 mmol/L (3.5-5.1)
[2020-06-24] MEDS: MULTIVITAMIN TAB PO SCH (08:34)
[2020-06-24] MEDS: INSULIN ASPART 100 UNITS/ML 3 ML PEN SC SCH ×4 (08:40→20:30)
--- NOTE | 2020-06-24 14:14 | Hospitalist Progress Note ---
Date of Service June 24, 2020 Assessment & Plan (1) Acute pyelonephritis: Continue ceftriaxone 2g IV daily while the Keflex is appropriate, she probably just needed some IV antibiotics initially great response today, no fever, no pain, no nausea WBC down to 12k renal US with dilation of right ureter, stones in kidney cannot get CT due to intra-uterine likely okay for discharge tomorrow, continue on Keflex for a full 14 day course (2) Prediabetes: Insulin for correction factor only. BSG ACHS monitor for hypoglycemia, no issues (3) PCOS (polycystic ovarian syndrome): Hold metformin (4) Depression with anxiety: Continue duloxetine 40mg PO HS (5) First trimester : bHCG going up to 1900 yesterday from 900 vaginal US with evidence of intrauterine repeat bHCG tomorrow and have [facility] applicator Admission and Anticipated Discharge Date Admission Date: June 23, 2020 Subjective patient feeling a lot better today, less flank pain, no fever, able to eat and drink she reports having severe flank pain when she came to the ED on Monday and was sent home on Keflex the pain got worse, more nausea and vomiting, fevers never had dysuria or hematuria WBC is coming down, urine culture from 06/21 with zamudio sensitive Proteus discussed findings of intra-uterine on vaginal US, beta HCG going up, plan to repeat tomorrow discussed that Ceftriaxone is safe with hope to discharge tomorrow Review of Systems Review of Systems: All systems reviewed & are unremarkable except as noted in Subjective Physical Exam Constitutional: well developed, well nourished, comfortable and + overweight Neck: trachea midline, no thyromegaly Respiratory: normal respiratory effort, lungs clear to auscultation Cardiovascular: RRR, no murmur, no edema Gastrointestinal (Abdomen): normal bowel sounds, soft, nontender, no hepatosplenomegaly Musculoskeletal: no cyanosis or clubbing, extremities motor strength 5/5 Skin: no rashes, warm and dry Neurologic: patellar DTR's 2+ bilat, sensation intact and PERRL, EOMI, accommodation nl, no face palsy, no dysarthria Psychiatric: A+Ox3, euthymic affect Lymphatic: no cervical or axillary lymphadenopathy Results & Data Results & Data ([facility]) Vital Signs (Past 12 Hours) Vital Signs Temp Pulse Resp BP Pulse Ox 06/24/20 08:00 36.9 C 87 18 98/65 L 99 Laboratory Results Laboratory Results - last 24 hr 06/23/20 06/23/20 06/23/20 13:32 13:32 15:25 WBC RBC Hgb Hct MCV MCH MCHC RDW Std Deviation RDW Coeff of Hai Plt Count MPV Immature Gran % (Auto) Neut % (Auto) Lymph % (Auto) Brooks % (Auto) Eos % (Auto) Baso % (Auto) Neut # (Auto) Lymph # (Auto) Brooks # (Auto) Eos # (Auto) Baso # (Auto) Immature Gran # (Auto) Sodium 137 Potassium 3.3 L Chloride 106 Carbon Dioxide 22 Anion Gap 9.0 BUN 10 Creatinine 0.70 Est Cr Clr Drug Dosing 127.1 Est GFR ( Amer) 133.8 Est GFR (Non-Af Amer) 115.5 BUN/Creatinine Ratio 13.7 Glucose 110 H POC Glucose Calcium 9.4 Total Bilirubin 0.6 AST 14 L ALT 25 Alkaline Phosphatase 65 Total Protein 7.6 Albumin 3.7 Globulin 3.9 Albumin/Globulin Ratio 1.0 Lipase 65 L HCG, Quant 1916 Urine Color Yellow Urine Appearance Clear Urine pH 6.5 Ur Specific [place] 1.017 Urine Protein Negative Urine Glucose (UA) Negative Urine Ketones 2+ H Urine Blood 1+ H Urine Nitrite Negative Urine Bilirubin Negative Urine Urobilinogen Negative Ur Leukocyte Esterase 1+ H Urine WBC (Auto) 10-30 H Urine RBC (Auto) 0-4 U Hyaline Cast (Auto) 0 U Epithel Cells (Auto) 10-20 H Urine Bacteria (Auto) Negative COVID-19 Eval Order SARS-CoV-2, RNA, NAAT 06/23/20 06/23/20 06/23/20 16:45 16:45 22:30 WBC RBC Hgb Hct MCV MCH MCHC RDW Std Deviation RDW Coeff of Hai Plt Count MPV Immature Gran % (Auto) Neut % (Auto) Lymph % (Auto) Brooks % (Auto) Eos % (Auto) Baso % (Auto) Neut # (Auto) Lymph # (Auto) Brooks # (Auto) Eos # (Auto) Baso # (Auto) Immature Gran # (Auto) Sodium Potassium Chloride Carbon Dioxide Anion Gap BUN Creatinine Est Cr Clr Drug Dosing Est GFR ( Amer) Est GFR (Non-Af Amer) BUN/Creatinine Ratio Glucose POC Glucose 123 H Calcium Total Bilirubin AST ALT Alkaline Phosphatase Total Protein Albumin Globulin Albumin/Globulin Ratio Lipase HCG, Quant Urine Color Urine Appearance Urine pH Ur Specific [place] Urine Protein Urine Glucose (UA) Urine Ketones Urine Blood Urine Nitrite Urine Bilirubin Urine Urobilinogen Ur Leukocyte Esterase Urine WBC (Auto) Urine RBC (Auto) U Hyaline Cast (Auto) U Epithel Cells (Auto) Urine Bacteria (Auto) COVID-19 Eval [facility] SARS-CoV-2, RNA, NAAT NEGATIVE 06/24/20 06/24/20 06/24/20 06:25 06:25 08:02 WBC 12.76 H RBC 4.00 L Hgb 11.9 L Hct 34.9 L MCV 87.3 MCH 29.8 MCHC 34.1 RDW Std Deviation 43.7 RDW Coeff of Hia 13.6 Plt Count 321 MPV 8.9 Immature Gran % (Auto) 0.2 Neut % (Auto) 64.4 Lymph % (Auto) 24.2 Brooks % (Auto) 10.0 Eos % (Auto) 1.0 Baso % (Auto) 0.2 Neut # (Auto) 8.22 H Lymph # (Auto) 3.09 Brooks # (Auto) 1.27 H Eos # (Auto) 0.13 Baso # (Auto) 0.02 Immature Gran # (Auto) 0.03 H Sodium 139 Potassium 3.6 Chloride 111 H Carbon Dioxide 22 Anion Gap 6.0 BUN 5 L D Creatinine 0.63 Est Cr Clr Drug Dosing 144.1 Est GFR ( Amer) 138.5 Est GFR (Non-Af Amer) 119.5 BUN/Creatinine Ratio 7.8 L Glucose 110 H POC Glucose 121 H Calcium 8.2 L Total Bilirubin AST ALT Alkaline Phosphatase Total Protein Albumin Globulin Albumin/Globulin Ratio Lipase HCG, Quant Urine Color Urine Appearance Urine pH Ur Specific [place] Urine Protein Urine Glucose (UA) Urine Ketones Urine Blood Urine Nitrite Urine Bilirubin Urine Urobilinogen Ur Leukocyte Esterase Urine WBC (Auto) Urine RBC (Auto) U Hyaline Cast (Auto) U Epithel Cells (Auto) Urine Bacteria (Auto) COVID-19 Eval Order SARS-CoV-2, RNA, NAAT 06/24/20 11:56 WBC RBC Hgb Hct MCV MCH MCHC RDW Std Deviation RDW Coeff of Hai Plt Count MPV Immature Gran % (Auto) Neut % (Auto) Lymph % (Auto) Brooks % (Auto) Eos % (Auto) Baso % (Auto) Neut # (Auto) Lymph # (Auto) Brooks # (Auto) Eos # (Auto) Baso # (Auto) Immature Gran # (Auto) Sodium Potassium Chloride Carbon Dioxide Anion Gap BUN Creatinine Est Cr Clr Drug Dosing Est GFR ( Amer) Est GFR (Non-Af Amer) BUN/Creatinine Ratio Glucose POC Glucose 95 Calcium Total Bilirubin AST ALT Alkaline Phosphatase Total Protein Albumin Globulin Albumin/Globulin Ratio Lipase HCG, Quant Urine Color Urine Appearance Urine pH Ur Specific [place] Urine Protein Urine Glucose (UA) Urine Ketones Urine Blood Urine Nitrite Urine Bilirubin Urine Urobilinogen Ur Leukocyte Esterase Urine WBC (Auto) Urine RBC (Auto) U Hyaline Cast (Auto) U Epithel Cells (Auto) Urine Bacteria (Auto) COVID-19 Eval Order SARS-CoV-2, RNA, NAAT Medications Administered Current Inpatient Medications Acetaminophen (Acetaminophen 325 Mg Tab) 650 mg PO Q4H PRN PRN Reason: pain/fever Stop: 07/23/20 20:43 Dextrose (Dextrose 50% 50 Ml Syringe) 25 - 50 ml IV UD PRN; Protocol PRN Reason: Hypoglycemia Protocol Stop: 07/23/20 21:39 Duloxetine HCl (Duloxetine Hcl 20 Mg Cap) 40 mg PO QPM [facility] Stop: 07/23/20 20:59 Last Admin: 06/23/20 22:21 Dose: 40 mg Documented by: Glucagon (Glucagon For Inj 1 Mg Vial) 1 mg SQ UD PRN; Protocol PRN Reason: Hypoglycemia Protocol Stop: 07/23/20 21:39 Glucose (Glucose 10 Tabs/Tube) 4 - 8 tabs PO UD PRN; Protocol PRN Reason: Hypoglycemia Protocol Stop: 07/23/20 21:39 Glucose (Glucose 40% Gel 15 Gm Tube) 15 - 30 gm PO UD PRN; Protocol PRN Reason: Hypoglycemia Protocol Stop: 07/23/20 21:39 Ceftriaxone Sodium 2,000 mg/ (Dextrose) 70 mls @ 100 mls/hr IV Q24H LUCIANO; Protocol Stop: 07/04/20 14:59 Acetaminophen (Ofirmev) 1,000 mg in 100 mls @ 400 mls/hr IV Q8H PRN PRN Reason: Pain or Fever Stop: 06/26/20 20:43 Last Infusion: 06/24/20 12:09 Dose: Infused Documented by: Potassium Chloride/Sodium Chloride (Normal Saline W/20 Meq Kcl) 20 meq in 1,000 mls @ 125 mls/hr IV .Q8H [facility] Stop: 07/23/20 20:43 Last Infusion: 06/24/20 12:09 Dose: 125 mls/hr Documented by: Insulin Aspart (Insulin Aspart 100 Units/Ml 3 Ml Pen) 0 units SC ACHS [facility] Stop: 07/24/20 07:29 Last Admin: 06/24/20 12:36 Dose: Not Given Documented by: Miscellaneous (Carbohydrates For Hypoglycemia ) 15 - 30 gm PO UD PRN PRN Reason: Hypoglycemia Protocol Stop: 07/23/20 21:39 Multivitamins (Multivitamin Tab) 1 tab PO QAM [facility] Stop: 07/24/20 08:59 Last Admin: 06/24/20 08:34 Dose: 1 tab Documented by: Ondansetron HCl (Ondansetron Inj 2 Mg/Ml 2 Ml Vial) 4 mg IV Q4H PRN PRN Reason: Nausea or Vomiting Stop: 07/23/20 20:43 Oxycodone HCl (Oxycodone Hcl Ir 5 Mg Tab (Immediate Release)) 5 mg PO Q4H PRN PRN Reason: Pain Stop: 07/07/20 20:43 PG Care Time/CCT Total # of Minutes Spent Total Time Spent with Patient: Total time spent is greater than 50% in coordination of care (as documented) at patient's floor/unit and/or counseling patient: Coding Level of Care Code 58809 Subseq Hosp Care Lvl 2 Diagnoses Acute pyelonephritis N10 Prediabetes R73.03 PCOS (polycystic ovarian syndrome) E28.2 Depression with anxiety F41.8 First trimester Z34.91
[2020-06-24] MEDS: cefTRIAXone SODIUM 2,000 MG in DEXTROSE 5% 50 ML IV SCH (14:39)
[2020-06-24] MEDS: DULoxetine HCL 20 MG CAP PO SCH (19:58)
[2020-06-25] MEDS: NSS + 20MEQ KCL 20 MEQ/1,000 ML BAG IV SCH (03:32)
[2020-06-25 06:17] LABS: Basophils # (auto) 0.05 K/uL (0-0.2); Basophils % (auto) 0.5 %; Eosinophils # (auto) 0.28 K/uL (0-0.5); Eosinophils % (auto) 2.8 %; Hematocrit (blood only) 35.7 % (37-47); Hemoglobin 11.9 g/dL (12.0-16.0); Immature Granulocytes # (auto) 0.02 K/uL (0.00-0.02); Immature Granulocytes % (auto) 0.2 %; Lymphocytes # (auto) 3.39 K/uL (1.2-3.4); Mean Corpuscular Hemoglobin 29.5 pg (25-34); Mean Corpuscular Hgb Conc 33.3 g/dL (32-36); Mean Corpuscular Volume 88.4 fL (80-100); Monocytes # (auto) 0.81 K/uL (0.11-0.59); Monocytes % (auto) 8.1 %; Neutrophils # (auto) 5.43 K/uL (1.4-6.5); Neutrophils % (auto) 54.4 %; Platelet Count 329 K/uL (130-400); RDW Coefficient of Variation 13.4 % (11.5-14.5); RDW Standard Deviation 43.8 fL (36.4-46.3); Red Blood Count 4.04 M/uL (4.2-5.4); White Blood Count 9.98 K/uL (4.8-10.8)
[2020-06-25 06:50] LABS: Albumin Level 2.6 gm/dl (3.4-5.0); BUN Creatinine Ratio 8.9 (10-20); Calcium 8.6 mg/dl (8.5-10.1); Creatinine Clr Calc Pharmacy 141.9 ml/min; Est GFR (African American) 137.8; Est GFR (Non-African American) 118.9; Potassium 4.1 mmol/L (3.5-5.1)
[2020-06-25 06:55] LABS: Albumin Globulin Ratio 0.7 (0.9-2); Bilirubin,Total 0.2 mg/dl (0.2-1); Globulin 3.6 gm/dl (2.5-4.0); Total Protein 6.2 gm/dl (6.4-8.2)
[2020-06-25] MEDS: INSULIN ASPART 100 UNITS/ML 3 ML PEN SC SCH (08:26)
[2020-06-25] MEDS: MULTIVITAMIN TAB PO SCH (08:27)
--- NOTE | 2020-06-25 10:52 | Discharge Summary ---
Date of Service June 25, 2020 Admission HPI Per Admitting Provider Osiel Adam is a 30-year-old (LMP May 27) who presents to the ER with ongoing right flank pain. She reports her pain started 3 days ago while going on a hike and it started with umbilical abdominal pain. Initially felt this may be musculoskeletal however the pain increased over the following day and she started having nausea and vomiting starting that night. She went to the ER 2 days ago and was diagnosed with a UTI and test was positive. She is yet to see her patient representative but has an upcoming appointment on July 02. She was not given any antibiotics in the emergency room but discharged with Keflex. Unfortunately her pain has increased at times it appears to be renal colic causing her to need to pace around the room. Severity 10/10 at worst, currently 6/10. Improved with Tylenol IV given in the ER. Given her nausea and vomiting she has not been able to drink or eat much for the last 3 days. She has a prior history of an uncomplicated UTI many years ago. Prior kidney stone as a teenager - passed by itself. Current pain is in the same location as her previous kidney stone although this pain seems to be much worse. In the ER beta-hCG is appropriately rising. Possible visualization of a tiny intrauterine gestational sac on ultrasound. Renal ultrasound showed right-sided nephrolithiasis seen with mild right collecting system dilatation. White blood count mildly improved since 2 days ago from 20.4 to 17.5. She was diagnosed with acute pyelonephritis and treated with ceftriaxone. She was referred to medicine for admission and ongoing management of acute pyelonephritis in the setting of . Principal Diagnosis Right pyelonephritis Discharge Exam Constitutional well developed, well nourished, comfortable and + overweight Neck trachea midline, no thyromegaly Respiratory normal respiratory effort, lungs clear to auscultation Cardiovascular RRR, no murmur, no edema Gastrointestinal (Abdomen) normal bowel sounds, soft, nontender, no hepatosplenomegaly Musculoskeletal no cyanosis or clubbing, extremities motor strength 5/5 Skin no rashes, warm and dry Neurologic patellar DTR's 2+ bilat, sensation intact and PERRL, EOMI, accommodation nl, no face palsy, no dysarthria Psychiatric A+Ox3, euthymic affect Lymphatic no cervical or axillary lymphadenopathy Discharge Data Allergies Allergy/AdvReac Type Severity Reaction Status Date / Time Bactrim Allergy Intermediate RASH Verified 02/20/17 16:13 sulfamethoxazole Allergy Intermediate RASH Verified 06/23/20 15:54 trimethoprim Allergy Intermediate RASH Verified 06/23/20 15:54 Ordered Studies 06/23/20 13:17 US gallbladder Stat US pelvic complete Stat US renal/blad retro comp Stat 06/23/20 13:18 US transvaginal Stat Hospital Course (1) Acute pyelonephritis: Continue ceftriaxone 2g IV daily while the Keflex is appropriate, she probably just needed some IV antibiotics initially great response today, no fever, no pain, no nausea WBC down to normal renal US with dilation of right ureter, stones in kidney cannot get CT due to intra-uterine got a total of three doses of Rocephin, gave 2gm IV prior to discharge change back to Keflex 500mg BID, 14 days total for pyelonephritis follow up with PCP (2) Prediabetes: Insulin for correction factor only. 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 Total Time Total Time Spent Total Time Spent (In Minutes): 25 Total Time Includes: Examination of the Patient, Discharge Planning and Medi cation Reconciliation Discharge Plan Discharge Items Patient Disposition: Home - Self-Care Reason For Visit: PYELONEPHRITIS Discharge Diagnosis: Pyelonephritis Condition on Discharge: Good Goals: complete course of Keflex follow up with hand worker Activity: Resume your previous activity Non-emergency contact: Primary Care Provider and Manager Of Broadcast Content Call non-emergency contact if: you have any medication questions Follow-up/Referrals: Aaron Taylor MD, FACOG [Physician] - (1-2 weeks) Dawna Segal CRNP [Primary Care Provider] - 07/02/20 11:00 am (one week) Diet: Carb Consistent or DM2 Addtl Attending Provider Instructions: Medications: - CEFDINIR: complete 10 more days of antibiotics, first dose would be tomorrow morning, take twice a day Right sided pyelonephritis received three doses of Rocephin IV while here, responded well original urine culture with zamudio sensitive Proteus, antibiotic options limited with will change to Cefdinir 300mg twice a day for 10 days 1st trimester beta HCG continues to go up, ultrasound showed intra-uterine recommend you call hand worker office to schedule follow up, they will determine timing for intake visit Pending Studies at Discharge: No Stand-Alone Forms: [facility] [place] Smoking Cessation Medications and DC Order Prescriptions: New cefdinir 300 mg capsule 300 mg PO BID 10 Days Qty: 20 RF: 0 Continued acetaminophen 500 mg Tablet 1,000 mg PO Q6H PRN (Reason: Pain) RF: 0 metformin 500 mg tablet 1,000 mg PO QAM RF: 0 duloxetine 40 mg capsule,delayed release(DR/EC) 40 mg PO QPM RF: 0 multivitamin Tablet 1 tab PO QAM RF: 0 Discontinued norgestimate-ethinyl estradiol [Lau-Ix-Bztedr] 0.18/0.215/0.25 mg-25 mcg tablet 1 tab PO DAILY Qty: 28 RF: 11 cephalexin 500 mg capsule 500 mg PO BID 7 Days Qty: 14 RF: 0 Discharge Orders: Discharge Order (Routine); Ordered 06/25/20 Ordered By: Alan Escalante Admission Data Admit Date/Time: 06/23/20 16:40 Attending Provider: Alan Escalante Admit Provider: Deny Peacock Primary Care Provider: Dawna Segal Other Interventions: Discharge Summary Assessment (RN) Last Done: 06/25/20 10:56 Coding Level of Care Code 60298 OBS Care - Discharge Diagnoses Acute pyelonephritis N10 Prediabetes R73.03 PCOS (polycystic ovarian syndrome) E28.2 Depression with anxiety F41.8 First trimester Z34.91
[2020-06-25] MEDS: cefTRIAXone SODIUM 2,000 MG in DEXTROSE 5% 50 ML IV SCH (11:13)
== END 2020-06-25 12:34 | disposition home or self-care (01) ==
LOC: ED 12:44 → 3E 12:44 → SUATTDRO 16:40 → 3E 20:18

== ENCOUNTER 2021-08-30 22:20 | Inpatient (IN) ==
[2021-08-30] MEDS ORDERED: KETOROLAC 30 MG/ML VIAL IV STA (23:08)
[2021-08-30] MEDS ORDERED: ONDANSETRON INJ 2 MG/ML 2 ML VIAL IV STA (23:08)
[2021-08-30] MEDS ORDERED: SODIUM CHLORIDE 0.9% 1000ML 1,000 ML IV SCH (23:15)
[2021-08-30 23:26] LABS: Basophils # (auto) 0.06 K/uL (0-0.2); Basophils % (auto) 0.3 %; Eosinophils # (auto) 0.24 K/uL (0-0.5); Eosinophils % (auto) 1.1 %; Hematocrit (blood only) 40.6 % (37-47); Hemoglobin 13.9 g/dL (12.0-16.0); Immature Granulocytes # (auto) 0.07 K/uL (0.00-0.02); Immature Granulocytes % (auto) 0.3 %; Lymphocytes # (auto) 3.45 K/uL (1.2-3.4); Lymphocytes % (auto) 15.5 %; Mean Corpuscular Hemoglobin 29.7 pg (25-34); Mean Corpuscular Hgb Conc 34.2 g/dL (32-36); Mean Corpuscular Volume 86.8 fL (80-100); Mean Platelet Volume 9.4 fL (7.4-10.4); Monocytes % (auto) 4.1 %; Neutrophils % (auto) 78.7 %; Platelet Count 401 K/uL (130-400); RDW Coefficient of Variation 13.1 % (11.5-14.5); RDW Standard Deviation 41.8 fL (36.4-46.3); Red Blood Count 4.68 M/uL (4.2-5.4); White Blood Count 22.22 K/uL (4.8-10.8)
[2021-08-30] MEDS: MoRPHine SULFATE 4 MG/ML 1 ML CARP\\VIAL IV PRN ×2 (23:26→23:59)
[2021-08-30 23:34] LABS: Pregnancy Test, Serum Negative (Negative)
[2021-08-30 23:40] LABS: Albumin Globulin Ratio 1.4 (0.9-2); Albumin Level 4.4 gm/dl (3.4-5.0); BUN Creatinine Ratio 14.8 (10-20); Bilirubin,Total 0.4 mg/dl (0.2-1.0); Calcium 9.1 mg/dl (8.5-10.1); Creatinine Clr Calc Pharmacy 106.8 ml/min; Est GFR (African American) 100.8 ml/min; Est GFR (Non-African American) 86.9 ml/min; Globulin 3.1 gm/dl (2.5-4.0); Potassium 3.7 mmol/L (3.5-5.1); Total Protein 7.5 gm/dl (6.0-8.3)
[2021-08-31] MEDS ORDERED: PROMETHAZINE 12.5 MG/50.5 ML BAG IV STA (00:21)
[2021-08-31] MEDS ORDERED: SODIUM CHLORIDE 0.9% 1000ML 1,000 ML IV SCH (03:00)
--- NOTE | 2021-08-31 03:06 | Urology Consultation ---
Date of Consultation August 31, 2021 Assessment & Plan (1) Right ureteral calculus: The patient is being admitted on the hospitalist service. Recommend proceeding as follows: Provide analgesics Provide antiemetics Provide IV fluid for hydration Consider adding Flomax for expulsive therapy Consider adding antibiotics as patient has perinephric stranding and an elevated white blood cell count. Strain all urine so any kidney stones retrieved can be analyzed The patient n.p.o. She will be reassessed by the urology attending in the morning and determine if cystoscopy is needed. At the present time the patient is afebrile, normotensive, and does not have tachycardia. She is also noted to have normal renal function. Therefore I do not feel an emergent urologic procedure is required at this time but may be required semielectively. Additional recommendations be forthcoming based on her clinical course as unfolds History of Present Illness Reason for Consultation: Nephrolithiasis History of Present Illness This is a 31-year-old female who presented to [facility] emergency department secondary to right flank pain that began yesterday. Patient notes that the pain is in her right flank with some radiation to the front of her abdomen. She does have some associated nausea or vomiting. She does not report any palliative or provocative factors. She does report some dysuria. She denies any hematuria. She denies any fevers, shakes, or chills. She does report a history of kidney stones in the past but they have always pa ssed on their own and she has never required any surgery or cystoscopy. In the emergency department the patient had labs and imaging which I independently reviewed. A CT scan of the abdomen pelvis showed the patient had an 11 mm obstructing kidney stone in the distal right ureter resulting in marked hydroureteronephrosis. Mild perinephric stranding was noted. Labs included a CBC were white blood cell count was 22.2. Hemoglobin, hematocrit, were normal. Platelet count was 401,000. Chemistry profile showed sodium was 134. BUN and creatinine were normal. Potassium was normal. A test was negative. A COVID test was negative. A urinalysis has been ordered but is pending. At the time of my interview the patient was resting comfortably in bed and she was in no distress. Allergies Allergy/AdvReac Type Severity Reaction Status Date / Time sulfamethoxazole Allergy Intermediate RASH Verified 08/30/21 22:50 trimethoprim Allergy Intermediate RASH Verified 08/30/21 22:50 Home Medications Medication Instructions Recorded Confirmed Type multivitamin 1 tab PO QAM 06/21/20 08/30/21 History ondansetron 4 mg disintegrating 4 mg PO Q4H PRN #8 tab 11/17/20 08/30/21 Rx tablet duloxetine 40 mg capsule,delayed 40 mg PO QAM #30 cap 03/19/21 08/30/21 Rx release norethindrone (contraceptive) 0.35 0.35 mg PO DAILY 08/30/21 08/30/21 History mg tablet Patient History Medical History Depression with anxiety Hypertriglyceridemia PCOS (polycystic ovarian syndrome) PNA (pneumonia) Surgical History History of kidney surgery Hx of section Family History Grandmother (Paternal) Diabetes Social History Smoking Status: Current every day smoker Tobacco Type: Cigarettes Cigarettes Per Day: 2; Second Hand Exposure: No; Hx Alcohol Use: Yes Alcohol type: beer and wine Hx Substance Use: No Preferred Language: Slovenian Communication Ability: Effective Internet Marketing Executive Required: No Beliefs That Will Affect Care: None Current Living Situation: Family Feels Safe at Home: Yes Assistive Devices: None Review of Systems Constitutional: no fever and no chills Eyes: no eye pain Ear, Nose, Mouth, Throat: no ear pain Respiratory: no cough and no dyspnea Cardiovascular: no chest pain Gastrointestinal: + abdominal pain (Radiating from right flank), + nausea and + vomiting Genitourinary: + dysuria and + flank pain (Right sided); no hematuria Musculoskeletal: + back pain (Right flank) Integumentary: no rash Neurologic: no localized weakness Physical Exam Constitutional: well developed and well nourished; no acute distress Eyes: no conjunctival abnormality ENMT: Ears: no hearing impairment Mouth: no oropharynx abnormality Neck: trachea midline Respiratory: normal respiratory effort; no respiratory distress and no labored breathing Cardiovascular: Rate/Rhythm: regular rate and regular rhythm Gastrointestinal (Abdomen): Abdomen is rotund. It is soft and nondistended. There is no abdominal rigidity. There is minimal pain with palpation. Musculoskeletal: No calf tenderness Skin: no rashes Neurologic: moves all extremities Psychiatric: A+Ox3, euthymic affect Genitourinary: + CVA tenderness (Right sided noted with percussion) Results & Data ([facility]) Vital Signs (Past 12 Hours) Vital Signs Temp Pulse Pulse Resp BP BP Pulse Ox 08/31/21 02:30 80 20 144/83 H 99 08/31/21 00:42 70 20 145/94 H 99 08/30/21 23:30 76 20 161/89 H 98 08/30/21 22:25 37.1 C 86 18 146/100 H 99 PG Care Time/CCT Total # of Minutes Spent Total Time Spent with Patient: Total time spent is greater than 50% in coordination of care (as documented) at patient's floor/unit and/or counseling patient: Coding Level of Care Code 68791 Inpt Consult Level 5 Diagnoses Right ureteral calculus N20.1
--- NOTE | 2021-08-31 03:22 | History & Physical Report ---
Date of Service August 31, 2021 Assessment & Plan (1) Right ureteral calculus: Plan: 11 mm distal right ureteral calculus/marked right hydroureteronephrosis/history of kidney stones N.p.o. except medications Received 2 L normal saline in ED LR at 80 mils per hour Follow urine culture and sensitivity Ceftriaxone 2 g IV daily Acetaminophen 650 mg p.o. every 6 hours as needed mild pain or fever [place] 5/325, 1 p.o. every 4 hours as needed moderate pain Dilaudid 0.25 mg IV every 3 hours as needed severe pain Zofran 4 mg IV every 6 hours as needed Consult urology (2) Hydronephrosis, right: Plan: See above (3) Depression with anxiety: Plan: Continue duloxetine 40 mg daily in the morning (4) PCOS (polycystic ovarian syndrome): Plan: Continue norethindrone 0.35 mg daily History of Present Illness Chief Complaint: The patient presents to the emergency department complaining of right flank pain Primary Care Provider: FUENTES Galvez The patient is a 31-year-old female with a past medical history including depression with anxiety, PCOS, acute pyelonephritis and prediabetes. She presents to the emergency department complaining of right flank pain. Work-up in the emergency department included a CT scan of abdomen pelvis without contrast which showed an 11 mm distal right ureteral stone with marked right hydroureteronephrosis. Abnormal laboratories: WBC 22.22, AST 51, ALT 56, and glucose 157. Allergies Allergy/AdvReac Type Severity Reaction Status Date / Time sulfamethoxazole Allergy Intermediate RASH Verified 08/30/21 22:50 trimethoprim Allergy Intermediate RASH Verified 08/30/21 22:50 Home Medications Medication Instructions Recorded Confirmed Type multivitamin 1 tab PO QAM 06/21/20 08/30/21 History ondansetron 4 mg disintegrating 4 mg PO Q4H PRN #8 tab 11/17/20 08/30/21 Rx tablet duloxetine 40 mg capsule,delayed 40 mg PO QAM #30 cap 03/19/21 08/30/21 Rx release norethindrone (contraceptive) 0.35 0.35 mg PO DAILY 08/30/21 08/30/21 History mg tablet Past Med/Surg History Medical History Depression with anxiety Hypertriglyceridemia PCOS (polycystic ovarian syndrome) PNA (pneumonia) Surgical History History of kidney surgery Hx of section Family History Grandmother (Paternal) Diabetes Social History Smoking Status: Current every day smoker Tobacco Type: Cigarettes Cigarettes Per Day: 2; Second Hand Exposure: No; Hx Alcohol Use: Yes Alcohol type: beer and wine Hx Substance Use: No Preferred Language: Macedonian Communication Ability: Effective Chronic Disease Manager Required: No Beliefs That Will Affect Care: None Current Living Situation: Family Feels Safe at Home: Yes Assistive Devices: None Review of Systems Review of Systems: The patient denies chest pain, palpitations, shortness of breath, dyspnea on exertion, cough, lower extremity swelling, sore throat, fevers, chills, sweats, vomiting, diarrhea , constipation, blood in urine or stool, dysuria, lightheadedness, dizziness, headache, memory loss, loss of consciousness, rash, abnormal bruising or bleeding, imbalance, focal or generalized weakness, numbness or tingling in arms or legs, generalized arthralgias or myalgias, neck pain, or night sweats. The review of systems is otherwise negative other than for that already noted above, and at least 10 systems have been reviewed. Physical Exam Physical Exam: The patient is awake, alert and oriented 3, well developed and well nourished, normocephalic and atraumatic, lying in bed and in no acute distress. HEENT--PERRL, EOMI, mucous membranes and oropharynx dry. Neck--supple. No JVD. No bruits. Thyroid normal, trachea midline, no adenopathy. Heart--normal S1 and S2. No murmurs, rubs or gallops. Lungs--clear bilaterally, no respiratory distress, no accessory muscle use. Abdomen--normal bowel sounds and soft. Nontender. Nondistended. Obese Extremities--no cyanosis or clubbing. No edema. Dermatologic--normal skin turgor, normal color, no abnormal lymph nodes, no rash. Neurologic--cranial nerves II through XII grossly intact. Rheumatologic--normal range of motion. Psychiatric--normal affect. Results & Data Results & Data ([facility]) Vital Signs (Past 12 Hours) Vital Signs Temp Pulse Pulse Resp BP BP Pulse Ox 08/31/21 02:30 80 20 144/83 H 99 08/31/21 00:42 70 20 145/94 H 99 08/30/21 23:30 76 20 161/89 H 98 08/30/21 22:25 37.1 C 86 18 146/100 H 99 Laboratory Results Laboratory Results WBC 22.22 K/uL (4.8-10.8) H 08/30/21 22:39 RBC 4.68 M/uL (4.2-5.4) 08/30/21 22:39 Hgb 13.9 g/dL (12.0-16.0) 08/30/21 22:39 Hct 40.6 % (37-47) 08/30/21 22:39 MCV 86.8 fL (80-100) 08/30/21 22:39 MCH 29.7 pg (25-34) 08/30/21 22:39 MCHC 34.2 g/dL (32-36) 08/30/21 22:39 RDW Std Deviation 41.8 fL (36.4-46.3) 08/30/21 22:39 RDW Coeff of Hai 13.1 % (11.5-14.5) 08/30/21 22:39 Plt Count 401 K/uL (130-400) H 08/30/21 22:39 MPV 9.4 fL (7.4-10.4) 08/30/21 22:39 Immature Gran % (Auto) 0.3 % 08/30/21 22:39 Neut % (Auto) 78.7 % 08/30/21 22:39 Lymph % (Auto) 15.5 % 08/30/21 22:39 [place] % (Auto) 4.1 % 08/30/21 22:39 Eos % (Auto) 1.1 % 08/30/21 22:39 Baso % (Auto) 0.3 % 08/30/21 22:39 Neut # (Auto) 17.50 K/uL (1.4-6.5) H 08/30/21 22:39 Lymph # (Auto) 3.45 K/uL (1.2-3.4) H 08/30/21 22:39 [place] # (Auto) 0.90 K/uL (0.11-0.59) H 08/30/21 22:39 Eos # (Auto) 0.24 K/uL (0-0.5) 08/30/21 22:39 Baso # (Auto) 0.06 K/uL (0-0.2) 08/30/21 22:39 Immature Gran # (Auto) 0.07 K/uL (0.00-0.02) H 08/30/21 22:39 Sodium 134 mmol/L (136-145) L 08/30/21 22:39 Potassium 3.7 mmol/L (3.5-5.1) 08/30/21 22:39 Chloride 101 mmol/L (98-107) 08/30/21 22:39 Carbon Dioxide 21 mmol/L (21-32) 08/30/21 22:39 Anion Gap 12 (3-11) H 08/30/21 22:39 BUN 13 mg/dl (6-23) 08/30/21 22:39 Creatinine 0.88 mg/dl (0.6-1.2) 08/30/21 22:39 Est Cr Clr Drug Dosing 106.8 ml/min 08/30/21 22:39 Est GFR ( Amer) 100.8 ml/min 08/30/21 22:39 Est GFR (Non-Af Amer) 86.9 ml/min 08/30/21 22:39 BUN/Creatinine Ratio 14.8 (10-20) 08/30/21 22:39 Glucose 157 mg/dl (70-99(Fasting)) H 08/30/21 22:39 Calcium 9.1 mg/dl (8.5-10.1) 08/30/21 22:39 Total Bilirubin 0.4 mg/dl (0.2-1.0) 08/30/21 22:39 AST 51 U/L (13-39) H 08/30/21 22:39 ALT 56 U/L (7-52) H 08/30/21 22:39 Alkaline Phosphatase 65 U/L (34-104) 08/30/21 22:39 Total Protein 7.5 gm/dl (6.0-8.3) 08/30/21 22:39 Albumin 4.4 gm/dl (3.4-5.0) 08/30/21 22:39 Globulin 3.1 gm/dl (2.5-4.0) 08/30/21 22:39 Albumin/Globulin Ratio 1.4 (0.9-2) 08/30/21 22:39 Lipase 18 U/L (11-82) 08/30/21 22:39 HCG, Qual Negative (Negative) 08/30/21 22:39 SARS-CoV-2, RNA, NAAT NEGATIVE (NEGATIVE) 08/30/21 23:40 Diagnostic Findings [facility] Patient: GERSON LEY (Female) : 88 Status: ER Date: 08/31/21 00:26 Room #: History: PAIN AT RIGHT FLANK, H/O KIDNEY STONES Slices: [id number] Priors: Tech: Gerson Kennedy @ [phone] Exams: CT ABDOMEN & PELVIS Without Contrast Contrast: Accession Numbers: [id number] Referring Physician: REFERRED SELF Preliminary Findings Only See Final Report For Complete Findings CT ABDOMEN & PELVIS Without Contrast: Prior study 11/17/2020 11 mm obstructing calculus in the distal right ureter. Marked right hydroureteronephrosis. Mild perinephric stranding. Multiple nonobstructing right renal calculi. Normal appendix Fatty enlarged liver. Radiologist: Marisa Araiza M.D. Study ready at 00:30 and initial results transmitted at 02:38 *This report constitutes a preliminary interpretation only. Non-acute findings felt to be unrelated to the clinical presentation may not be discussed in this report. The study will be interpreted and a final report will be generated by the local Radiologist the following shift. To reach the [facility] department call [phone]. If a discrepancy is found between the preliminary and final interpretations of this study, please notify us via our Client Portal at [email or web address], under QA Exams. You can also fax this report with a description of the discrepancy, or include the final report, to our daytime fax number [phone]. If faxing, please indicate the severity of discrepancy using one of the following categories: [ ] 1 - Agree/Informational [ ] 2 - Unlikely to Affect Management [ ] 3 - Possible Eventual Change of Management [ ] 4 - Probable Immediate Change of Management For all other patient related information, please fax us at [phone]. [id number] Code Status & VTE Plan Code Status Full code VTE Prophylaxis Plan VTE Prophylaxis will be ordered: Yes PG Care Time/CCT Total # of Minutes Spent Total Time Spent with Patient: Total time spent is greater than 50% in coordination of care (as documented) at patient's floor/unit and/or counseling patient: Coding Level of Care Code 33119 Initial Inpt Care Lvl 2 Diagnoses Right ureteral calculus N20.1 Hydronephrosis, right N13.30 Depression with anxiety F41.8 PCOS (polycystic ovarian syndrome) E28.2
[2021-08-31] MEDS ORDERED: NSS + 20MEQ KCL 20 MEQ/1,000 ML BAG IV SCH (04:06)
[2021-08-31] MEDS: LACTATED RINGER'S 1,000 ML IV SCH ×2 (04:29→17:30)
[2021-08-31] MEDS: HYDROmorphone INJ 0.5 MG/0.5 ML SYR IV PRN ×3 (04:29→12:41)
[2021-08-31] MEDS: HYDROCODONE/ACETAMOPHEN 5/325MG TAB PO PRN ×2 (05:35→09:31)
--- NOTE | 2021-08-31 05:50 | Emergency Department Note ---
History of Present Illness General Chief complaint: Flank Pain Time Seen by Provider: 08/30/21 23:00 History of Present Illness Maximum Pain Intensity: 6 This is a 31-year-old female presenting to the emergency department for evaluation of right flank pain that began yesterday. The patient states the pain is waxing and waning and is radiating into her groin and front of her abdomen. She has had some nausea and vomiting. She does not identify aggravating or alleviating factors. She believes that she may have had some blood in her urine. No fever. No recent travel history. She does have a history of kidney stones and states this does feel similar to those episodes. Her current discomfort is rated a 6/10. Home Medications Medication Instructions Recorded Confirmed Type multivitamin 1 tab PO QAM 06/21/20 08/30/21 History ondansetron 4 mg disintegrating 4 mg PO Q4H PRN #8 tab 11/17/20 08/30/21 Rx tablet duloxetine 40 mg capsule,delayed 40 mg PO QAM #30 cap 03/19/21 08/30/21 Rx release norethindrone (contraceptive) 0.35 0.35 mg PO DAILY 08/30/21 08/30/21 History mg tablet Allergies Allergy/AdvReac Type Severity Reaction Status Date / Time sulfamethoxazole Allergy Intermediate RASH Verified 08/30/21 22:50 trimethoprim Allergy Intermediate RASH Verified 08/30/21 22:50 Past Med/Surg History Medical History Depression with anxiety Hypertriglyceridemia PCOS (polycystic ovarian syndrome) PNA (pneumonia) Surgical History History of kidney surgery Hx of section Family History Grandmother (Paternal) Diabetes Social History Smoking Status: Current every day smoker Tobacco Type: Cigarettes Cigarettes Per Day: 3; Second Hand Exposure: No; Hx Alcohol Use: No Hx Substance Use: No Preferred Language: [place] Communication Ability: Effective 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 Beliefs That Will Affect Care: None Current Living Situation: Family and Significant Other Feels Safe at Home: Yes Assistive Devices: Glasses Review of Systems A total of 10 systems reviewed and were otherwise negative Physical Exam Vital Signs Vital Signs - 24 hr 08/30/21 22:25 08/30/21 23:30 08/31/21 00:42 Temperature 37.1 C Temperature Source Oral Pulse Rate 86 Pulse Rate [Right Finger] 76 70 Respiratory Rate 18 20 20 Blood Pressure 146/100 H Blood Pressure [Left Arm] 161/89 H 145/94 H Blood Pressure Mean 115 Blood Pressure Mean [Left Arm] 113 111 Blood Pressure Position Sitting Pulse Oximetry 99 98 99 Oxygen Delivery Method Room Air Room Air Sepsis Recent Fever Within 48 Hours No Sepsis New/Unexplained Change in Mental Status N/A Sepsis Action Taken by Nursing No Action Required 08/31/21 02:30 Temperature Temperature Source Pulse Rate Pulse Rate [Right Finger] 80 Respiratory Rate 20 Blood Pressure Blood Pressure [Left Arm] 144/83 H Blood Pressure Mean Blood Pressure Mean [Left Arm] 103 Blood Pressure Position Pulse Oximetry 99 Oxygen Delivery Method Room Air Sepsis Recent Fever Within 48 Hours Sepsis New/Unexplained Change in Mental Status Sepsis Action Taken by Nursing VITALS: Vitals are noted on the nurse's note and reviewed by myself. Vital signs stable. GENERAL: Well-developed, well-nourished, white female who is in moderate discomfort secondary to her stated complaint. She is overall cooperative. MOUTH: Mucous membranes moist. Tonsils are not enlarged. Pharynx without erythema, blood, or exudate. Uvula midline. Airway patent. NECK: Supple without nuchal rigidity. No lymphadenopathy. No thyromegaly. Cervical spine is nontender. HEART: Regular rate and rhythm without murmurs gallops or rubs. LUNGS: Clear to auscultation bilaterally without wheezes, rales or rhonchi. No retractions or accessory muscle use. ABDOMEN: Positive normal bowel sounds x 4. Soft, nontender, without masses or organomegaly. No guarding or rebound tenderness. No CVA tenderness. MUSCULOSKELETAL: No muscle atrophy, erythema, or edema noted. Full range of motion in all extremities. Course Administered Medications Hydrocodone Bitart/Acetaminophen (Hydrocodone/Acetamophen 5/325mg Tab) 1 tab PO Q4H PRN PRN Reason: Moderate Pain Stop: 09/14/21 04:05 Last Admin: 08/31/21 05:35 Dose: 1 tab Documented by: [id number] Hydromorphone HCl (Hydromorphone Inj 0.5 Mg/0.5 Ml Syr) 0.25 mg IV Q3H PRN PRN Reason: Severe Pain Stop: 09/14/21 04:05 Last Admin: 08/31/21 04:29 Dose: 0.25 mg Documented by: [id number] Lactated Ringer's (Lr) 1,000 mls @ 80 mls/hr IV .[id number] LUCIANO Stop: 09/30/21 04:05 Last Admin: 08/31/21 04:29 Dose: 80 mls/hr Documented by: [id number] Discontinued Medications Sodium Chloride (Nss 1000ml) 1,000 mls @ 999 mls/hr IV .Q1H1M LUCIANO Stop: 08/31/21 00:15 Last Infusion: 08/31/21 00:31 Dose: 0 mls/hr Documented by: [id number] Admin: 08/30/21 23:21 Dose: 999 mls/hr Documented by: [id number] Promethazine HCl (Phenergan) 12.5 mg in 50.5 mls @ 202 mls/hr IV NOW STA Stop: 08/31/21 00:35 Last Infusion: 08/31/21 00:57 Dose: 0 mls/hr Documented by: [id number] Admin: 08/31/21 00:40 Dose: 202 mls/hr Documented by: [id number] Sodium Chloride (Nss 1000ml) 1,000 mls @ 999 mls/hr IV .Q1H1M LUCIANO Stop: 08/31/21 04:00 Last Infusion: 08/31/21 04:07 Dose: 0 mls/hr Documented by: [id number] Admin: 08/31/21 02:59 Dose: 999 mls/hr Documented by: [id number] Potassium Chloride/Sodium Chloride (Normal Saline W/20 Meq Kcl) 20 meq in 1,000 mls @ 100 mls/hr IV .Q10H LUCIANO; Protocol Stop: 09/30/21 04:05 Last Admin: 08/31/21 04:28 Dose: Not Given Documented by: [id number] Ketorolac Tromethamine (Ketorolac 30 Mg/Ml Vial) 30 mg IV NOW STA Stop: 08/30/21 23:09 Last Admin: 08/30/21 23:22 Dose: 30 mg Documented by: [id number] Morphine Sulfate (Morphine Sulfate 4 Mg/Ml 1 Ml Carp\Vial) 4 mg IV Q30M PRN PRN Reason: Pain Stop: 09/13/21 23:07 Last Admin: 08/30/21 23:59 Dose: 4 mg Documented by: [id number] Admin: 08/30/21 23:26 Dose: 4 mg Documented by: [id number] Ondansetron HCl (Ondansetron Inj 2 Mg/Ml 2 Ml Vial) 4 mg IV NOW STA Stop: 08/30/21 23:09 Last Admin: 08/30/21 23:22 Dose: 4 mg Documented by: [id number] Medical Decision Making Differential Diagnosis Differential diagnosis: Etiologies such as shingles, pyelonephritis/UTI, renal colic, appendicitis, diverticulitis, mesenteric ischemia, torsion, aortic pathology, infections, inflammatory bowel disease, bowel obstruction, PUD, biliary pathology, as well as others were entertained. Laboratory Data Result diagrams: 08/30/21 22:39 08/30/21 22:39 Lab Results 08/30/21 08/30/21 08/30/21 Range/Units 22:39 22:39 22:39 WBC 22.22 H (4.8-10.8) K/uL RBC 4.68 (4.2-5.4) M/uL Hgb 13.9 (12.0-16.0) g/dL Hct 40.6 (37-47) % MCV 86.8 (80-100) fL MCH 29.7 (25-34) pg MCHC 34.2 (32-36) g/dL RDW Std Deviation 41.8 (36.4-46.3) fL RDW Coeff of Hai 13.1 (11.5-14.5) % Plt Count 401 H (130-400) K/uL MPV 9.4 (7.4-10.4) fL Immature Gran % (Auto) 0.3 % Neut % (Auto) 78.7 % Lymph % (Auto) 15.5 % Door % (Auto) 4.1 % Eos % (Auto) 1.1 % Baso % (Auto) 0.3 % Neut # (Auto) 17.50 H (1.4-6.5) K/uL Lymph # (Auto) 3.45 H (1.2-3.4) K/uL Door # (Auto) 0.90 H (0.11-0.59) K/uL Eos # (Auto) 0.24 (0-0.5) K/uL Baso # (Auto) 0.06 (0-0.2) K/uL Immature Gran # (Auto) 0.07 H (0.00-0.02) K/uL Sodium 134 L (136-145) mmol/L Potassium 3.7 (3.5-5.1) mmol/L Chloride 101 (98-107) mmol/L Carbon Dioxide 21 (21-32) mmol/L Anion Gap 12 H (3-11) BUN 13 (6-23) mg/dl Creatinine 0.88 (0.6-1.2) mg/dl Est Cr Clr Drug Dosing 106.8 ml/min Est GFR ( Amer) 100.8 ml/min Est GFR (Non-Af Amer) 86.9 ml/min BUN/Creatinine Ratio 14.8 (10-20) Glucose 157 H (70-99(Fasting)) mg/dl Calcium 9.1 (8.5-10.1) mg/dl Total Bilirubin 0.4 (0.2-1.0) mg/dl AST 51 H (13-39) U/L ALT 56 H (7-52) U/L Alkaline Phosphatase 65 (34-104) U/L Total Protein 7.5 (6.0-8.3) gm/dl Albumin 4.4 (3.4-5.0) gm/dl Globulin 3.1 (2.5-4.0) gm/dl Albumin/Globulin Ratio 1.4 (0.9-2) Lipase 18 (11-82) U/L HCG, Qual Negative (Negative) SARS-CoV-2, RNA, NAAT (NEGATIVE) 08/30/21 Range/Units 23:40 WBC (4.8-10.8) K/uL RBC (4.2-5.4) M/uL Hgb (12.0-16.0) g/dL Hct (37-47) % MCV (80-100) fL MCH (25-34) pg MCHC (32-36) g/dL RDW Std Deviation (36.4-46.3) fL RDW Coeff of Hai (11.5-14.5) % Plt Count (130-400) K/uL MPV (7.4-10.4) fL Immature Gran % (Auto) % Neut % (Auto) % Lymph % (Auto) % Door % (Auto) % Eos % (Auto) % Baso % (Auto) % Neut # (Auto) (1.4-6.5) K/uL Lymph # (Auto) (1.2-3.4) K/uL Door # (Auto) (0.11-0.59) K/uL Eos # (Auto) (0-0.5) K/uL Baso # (Auto) (0-0.2) K/uL Immature Gran # (Auto) (0.00-0.02) K/uL Sodium (136-145) mmol/L Potassium (3.5-5.1) mmol/L Chloride (98-107) mmol/L Carbon Dioxide (21-32) mmol/L Anion Gap (3-11) BUN (6-23) mg/dl Creatinine (0.6-1.2) mg/dl Est Cr Clr Drug Dosing ml/min Est GFR ( Amer) ml/min Est GFR (Non-Af Amer) ml/min BUN/Creatinine Ratio (10-20) Glucose (70-99(Fasting)) mg/dl Calcium (8.5-10.1) mg/dl Total Bilirubin (0.2-1.0) mg/dl AST (13-39) U/L ALT (7-52) U/L Alkaline Phosphatase (34-104) U/L Total Protein (6.0-8.3) gm/dl Albumin (3.4-5.0) gm/dl Globulin (2.5-4.0) gm/dl Albumin/Globulin Ratio (0.9-2) Lipase (11-82) U/L HCG, Qual (Negative) SARS-CoV-2, RNA, NAAT NEGATIVE (NEGATIVE) Imaging Data Radiologist's Impression: Preliminary Findings Only See Final Report For Complete Findings CT ABDOMEN & PELVIS Without Contrast: Prior study 11/17/2020 11 mm obstructing calculus in the distal right ureter. Marked right hydroureteronephrosis. Mild perinephric stranding. Multiple nonobstructing right renal calculi. Normal appendix Fatty enlarged liver. Radiologist:Marisa Araiza M.D. [facility] Narrative Physical exam and history were performed. Nursing notes, EMR, and Medication List were personally reviewed. Patient appears to have right flank pain bringing her to the ER. She does have history of kidney stones and seems uncomfortable on presentation. IV access was established and labs were obtained. Patient was hydrated normal saline and given IV Toradol, IV morphine, and IV Zofran for comfort. She was sent to CT scan for other imaging. The patient's blood work is as above and was reviewed. She does have an elevated white blood cell count of greater than 22,000. She does not have a significant anemia, bandemia, or significant electrolyte imbalance. Transaminases are not diagnostic. Urine was not provided at the time of this dictation. CT scan was reviewed by myself and radiology and does show a very large 11 mm ureteral calculi with marked hydronephrosis. Covid is negative. Overall the patient does not appear well for discharge home. The case was discussed with both the on-call urology team and on-call hospitalist team. Please see their dictations for further patient course, plan, and disposition. The chart was completed utilizing [employer] Speech Voice Recognition Software. Grammatical errors, random word insertions, pronoun errors, and incomplete sentences are an occasional consequence of this system due to software limitati ons, ambient noise, and hardware issues. Any formal questions or concerns about the content, text, or information contained within the body of this dictation should be directly addressed to the provider for clarification. . Impression & Plan Right ureteral calculus, Hydronephrosis, right Discharge Plan Visit Data Chief Complaint: Flank Pain ED Provider: Baldo Garland ED Midlevel Provider: Blaine Calderon Discharge Problem: Right ureteral calculus, Hydronephrosis, right Patient Disposition: Admitted As Inpatient Discharge Instructions Interventions: ED Discharge Assessment Last Done: 08/31/21 03:50
[2021-08-31] MEDS: cefTRIAXone SODIUM 2,000 MG in DEXTROSE 5% 50 ML IV SCH (07:36)
[2021-08-31] MEDS: MULTIVITAMIN TAB PO SCH (07:39)
[2021-08-31] MEDS: DULoxetine HCL 20 MG CAP PO SCH (07:39)
--- NOTE | 2021-08-31 08:54 | CT Scan Report ---
CT abd pelvis wo con CLINICAL HISTORY: right flank pain. hx stones. TECHNIQUE: Helical axial images of the abdomen and pelvis were obtained. Automated dose lowering tech niques and/or adjustment according to patient size were utilized for this exam. This exam was perfor med without intravenous contrast. CT DOSE: 2084.15 mGy.cm COMPARISON: Comparison is made to CT abdomen pelvis 11/17/2020 FINDINGS: Lower chest: No acute abnormality Liver: Mass mild hepatic steatosis with focal fatty sparing about the gallbladder fossa. Gallbladder and biliary tree: No calcified gallstones. Normal caliber wall. No intra- or extrahepatic biliary ductal dilation. Pancreas: Unremarkable, no focal lesions. Spleen: Unremarkable. Adrenals: Unremarkable. Kidneys and ureters: There is an obstructive 11 mm stone in the distal right ureter with moderate to severe hydroureteronephrosis. Multiple nonobstructive stones are also seen in the right kidney collec ting system. Bladder: Limited evaluation due to underdistention. Reproductive organs: Unremarkable. Bowel: Unremarkable appearance of the bowel. The appendix is normal. Lymph nodes Retroperitoneal: Unremarkable. Mesenteric: Unremarkable. Pelvic: Unremarkable. Peritoneum: Normal. Vessels: Unremarkable. Abdominal wall: Unremarkable. Bones: Unremarkable. IMPRESSION: 1. Obstructive right distal ureteral stone with resulting moderate to severe hydroureteronephrosis. 2. Hepatic steatosis. ACT 112: Negative or not required by law. Electronically signed by: Alan Pardo M.D. 08/31/2021 8:51 AM
--- NOTE | 2021-08-31 09:26 | Urology Progress Note ---
Date of Service August 31, 2021 Assessment & Plan (1) Right ureteral calculus: (2) Hydronephrosis, right: Plan: 31yo F who presented with intractable right flank pain with associated nausea vomiting and found to have an obstructive 11 mm stone in the distal right ureter with moderate to severe hydroureteronephrosis and multiple nonobstructive stones also seen in the right kidney collecting system. - Afebrile, hemodynamically stable. - Labs reviewed - Wbc 22.22, Creatinine 0.88 - Urine collected and sent for C&S. On IV Ceftriaxone. - Plan of care reviewed with Dr. Quinn, on-call urologist. - Given her leukocytosis, intractable right flank pain with associated nausea vomiting in the context of an obstructing 11mm distal right UVJ stone, will proceed with OR for cystoscopy, right retrograde pyelogram, right ureteral stent placement. - Risks and benefits to be reviewed with patient by Dr. Quinn. OR notified. Covid test negative. Covered with scheduled IV Ceftriaxone. - Keep NPO. - Continue supportive care, antibiotic therapy, and pain management. - Will continue to follow. Admission and Anticipated Discharge Date Admission Date: August 31, 2021 Subjective Pt examined at bedside this AM. Awake, resting in bed on arrival. No acute distress. Denies fever or chills. Still with right back/flank pain, managing with IV pain medication. Some nausea and vomiting earlier this morning. Has been NPO. Reports she is voiding small amounts. Denies hematuria/dysuria. Of note - Pt reports a hx of Left [place] [facility] [place]. Review of Systems Constitutional: as per Subjective / HPI Gastrointestinal: as per Subjective / HPI Genitourinary: as per Subjective / HPI Physical Exam Constitutional: no acute distress Respiratory: no respiratory distress and no labored breathing Gastrointestinal (Abdomen): Inspection/Auscultation: abdomen normal to inspection Neurologic: moves all extremities and awake Psychiatric: Orientation: alert, oriented x 3 and cooperative Genitourinary: + CVA tenderness (right side) Results & Data ([facility]) Vital Signs (Past 12 Hours) Vital Signs Temp Pulse Pulse Resp BP BP BP 08/31/21 08:42 36.7 C 95 H 18 131/85 08/31/21 04:00 36.8 C 71 18 131/83 08/31/21 02:30 80 20 144/83 H 08/31/21 00:42 70 20 145/94 H 08/30/21 23:30 76 20 161/89 H 08/30/21 22:25 37.1 C 86 18 146/100 H Pulse Ox 08/31/21 08:42 97 08/31/21 04:00 99 08/31/21 02:30 99 08/31/21 00:42 99 08/30/21 23:30 98 08/30/21 22:25 99 PG Care Time/CCT Total # of Minutes Spent Total Time Spent with Patient: Total time spent is greater than 50% in coordination of care (as documented) at patient's floor/unit and/or counseling patient: Coding Level of Care Code None Diagnoses Right ureteral calculus N20.1 Hydronephrosis, right N13.30
[2021-08-31 11:06] LABS: Appearance Urine Clear (Clear); Bacteria Urine Automated Negative (Negative); Bilirubin Urine Negative (Negative); Blood Urine Negative (Negative); Color Urine Yellow; Epithelial Cell Urine Auto 20-30 /lpf (0-5); Glucose Urine UA Negative (Negative); Ketones Urine Negative (Negative); Leukocyte Esterase Urine Trace (Negative); Nitrite Urine Negative (Negative); Protein Urine Negative (Negative); RBC Urine Automated 0-4 /hpf (0-4); Specific Gravity Urine 1.023 (1.000-1.030); Urobilinogen Urine Negative (Negative); pH Urine 5.5 (4.5-7.5)
--- NOTE | 2021-08-31 12:46 | Anesthesiology Consultation ---
Date of Service August 31, 2021 Assessment & Plan (1) Encounter for pre-operative examination: Chart Review Chart Review: Acceptable Risk for Surgery and Patient NOT seen in Pre Admission Testing Consults Requested none History Surgery Operation Date: 08/31/21 10:30 Proposed Procedures p Cystoscopy Right Retrograde Pyelogram Stent Ureteral Insertion - Chance Quinn MD Height/Weight Height: 5 ft Weight: 120.6 kg Allergies Allergy/AdvReac Type Severity Reaction Status Date / Time sulfamethoxazole Allergy Intermediate RASH Verified 08/30/21 22:50 trimethoprim Allergy Intermediate RASH Verified 08/30/21 22:50 Medications Home Medications Medication Instructions Recorded Confirmed Last Taken multivitamin 1 tab PO QAM 06/21/20 08/30/21 08/30/21 ondansetron 4 mg disintegrating 4 mg PO Q4H PRN #8 tab 11/17/20 08/30/21 Unknown tablet duloxetine 40 mg capsule,delayed 40 mg PO QAM #30 cap 03/19/21 08/30/21 08/30/21 release norethindrone (contraceptive) 0.35 0.35 mg PO DAILY 08/30/21 08/30/21 08/30/21 mg tablet Active Medications Generic Name Dose Route Start Last Admin Trade Name Freq PRN Reason Stop Dose Admin Hydrocodone Bitart/Acetaminophen 1 tab 08/31/21 04:06 08/31/21 09:31 Hydrocodone/Acetamophen 5/325mg Tab PO 09/14/21 04:05 1 tab Q4H PRN Administration Moderate Pain Duloxetine HCl 40 mg 08/31/21 09:00 08/31/21 07:39 Duloxetine Hcl 20 Mg Cap PO 09/30/21 08:59 40 mg QAM LUCIANO Administration Hydromorphone HCl 0.25 mg 08/31/21 04:06 08/31/21 12:41 Hydromorphone Inj 0.5 Mg/0.5 Ml Syr IV 09/14/21 04:05 0.25 mg Q3H PRN Administration Severe Pain Lactated Ringer's 1,000 mls @ 80 mls/hr 08/31/21 04:06 08/31/21 04:29 Lr IV 09/30/21 04:05 80 mls/hr .[id number] LUCIANO Administration Ceftriaxone Sodium 2,000 mg/ 70 mls @ 100 mls/hr 08/31/21 09:00 08/31/21 08:18 Dextrose IV 09/10/21 08:59 Infused DAILY LUCIANO Infusion Protocol Miscellaneous 1 ea 08/31/21 08:00 08/31/21 07:27 Norethindrone (Contraceptive) 0.35 Mg - Order Awaiting Action N/A 09/30/21 07:59 Not Given QS LUCIANO Multivitamins 1 tab 08/31/21 09:00 08/31/21 07:39 Multivitamin Tab PO 09/30/21 08:59 1 tab QAM LUCIANO Administration Past Medical History Medical History Depression with anxiety Hypertriglyceridemia Morbid obesity PCOS (polycystic ovarian syndrome) PNA (pneumonia) Past Family History Family History Grandmother (Paternal) Diabetes Past Surgical History Surgical History History of kidney surgery Hx of section Social History Smoking Status: Current every day smoker tobacco type: cigarettes Smoking cigarettes per day: 3 Do You Dip or Chew Tobacco: No Hx Alcohol Use: No Alcohol type: beer and wine alcohol intake frequency: holidays/special occasions only Hx Substance Use: No Physical Exam Vital Signs Last Vital Signs Temp 36.7 C 08/31/21 08:42 Pulse 95 H 08/31/21 08:42 Resp 18 08/31/21 08:42 BP 131/85 08/31/21 08:42 Pulse Ox 97 08/31/21 08:42 Testing Laboratory Results 08/30/21 22:39 08/30/21 22:39 Urine Color Yellow 08/31/21 10:54 Urine Appearance Clear (Clear) 08/31/21 10:54 Urine pH 5.5 (4.5-7.5) 08/31/21 10:54 Ur Specific [place] 1.023 (1.000-1.030) 08/31/21 10:54 Urine Protein Negative (Negative) 08/31/21 10:54 Urine Glucose (UA) Negative (Negative) 08/31/21 10:54 Urine Ketones Negative (Negative) 08/31/21 10:54 Urine Nitrite Negative (Negative) 08/31/21 10:54 Ur Leukocyte Esterase Trace (Negative) H 08/31/21 10:54 Urine WBC (Auto) 5-10 /hpf (0-5) H 08/31/21 10:54 Urine RBC (Auto) 0-4 /hpf (0-4) 08/31/21 10:54 U Hyaline Cast (Auto) 1-5 /lpf (0-5) 08/31/21 10:54 U Epithel Cells (Auto) 20-30 /lpf (0-5) H 08/31/21 10:54 Urine Bacteria (Auto) Negative (Negative) 08/31/21 10:54
--- NOTE | 2021-08-31 13:50 | Hospitalist Progress Note ---
Date of Service August 31, 2021 Assessment & Plan (1) Pyelonephritis: Plan: 31-year-old white female presented with right flank pain. Found to have leukocytosis of 22.2 with a left shift and radiographic evidence of perinephritic fat stranding consistent with pyelonephritis. She has marked right-sided CVA tenderness. Patient with an obstructing ureteral stone Despite pyelonephritis and obstructive uropathy, she is not septic. She is afebrile and hemodynamically stable Continue empiric antibiotics (Rocephin) Urinalysis with culture ordered but remains uncollected. Discussed with nurse the importance of collecting this; however, I suspect culture data will be skewed as already on antibiotics Blood cultures mincing from initial work-up. 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 Johnson. Further orders as warranted. Admission and Anticipated Discharge Date Admission Date: August 31, 2021 Subjective Patient seen on daily rounds today. Hospitalized with 11 mm obstructing stone in the right distal ureter resulting in marked hydronephrosis. In addition, she had leukocytosis of 22.2 with a left shift but was otherwise hemodynamically stable. Her CT scan does show perinephritic fat stranding. Currently n.p.o. with plan for cystoscopy and ureteral stent. Urology on board. Empirically on Rocephin. Urinalysis with culture ordered but specimen remains uncollected Still complains of right flank pain along with subjective fever/chills, dysuria and frequency. Review of Systems Review of Systems: All systems reviewed and are unremarkable except as noted in HPI and below Denies fevers, chills, headache, nasal congestion, sore throat, cough, chest pain, shortness of breath, palpitations, orthopnea, PND, abdominal pain, nausea, vomiting, diarrhea, constipation, dysuria, hematuria, frequency, back pain, joint pain or swelling, easy bruising or bleeding, skin lesions or rashes. Physical Exam Physical Exam: General: Resting comfortably in her hospital bed. She does not appear toxic NAD. HEENT: Head is AT/NC. Buccal mucosa is moist and pink Neck: No JVD. Negative hepatojugular reflex Cardiac: RRR without M/G/R Lungs: CTA without W/R/R Abdomen: Normoactive X4. Abdomen soft with suprapubic tenderness. Exquisite right-sided CVA tenderness. Extremities: No peripheral clubbing cyanosis or edema Neuro: A&O X4. Cranial nerves II through XII are grossly intact. No focal neuro deficits Skin: No obvious skin lesions or rashes Psych: Appropriate affect. Pleasant and cooperative Results & Data Results & Data ([facility]) Vital Signs (Past 12 Hours) Vital Signs Temp Pulse Resp BP BP Pulse Ox 08/31/21 08:42 36.7 C 95 H 18 131/85 97 08/31/21 04:00 36.8 C 71 18 131/83 99 08/31/21 02:30 80 20 144/83 H 99 Laboratory Results 08/30/21 22:39 08/30/21 22:[address] of abdomen/pelvis: 11 mm obstructing calculus in the right distal ureter with marked hydronephrosis and mild perinephritic fat stranding along with multiple nonobstructing stones PG Care Time/CCT Total # of Minutes Spent Total Time Spent with Patient: Total time spent is greater than 50% in coordination of care (as documented) at patient's floor/unit and/or counseling patient: Coding Level of Care Code 74044 Subseq Hosp Care Lvl 2 Diagnoses Pyelonephritis N12 Right ureteral calculus N20.1 Depression with anxiety F41.8
[2021-08-31] MEDS ORDERED: ePHEDrine sulfate 50 MG/ML AMP IV PRN (13:55)
[2021-08-31] MEDS ORDERED: LABETALOL HCL IV 5 MG/ML 20ML IV PRN (13:55)
[2021-08-31] MEDS ORDERED: HYDROmorphone INJ 1 MG/ML SYRINGE IV PRN (13:55)
[2021-08-31] MEDS ORDERED: PHENYLEPHRINE 100MCG/ML 5ML SYR IV PRN (13:55)
[2021-08-31] MEDS ORDERED: fentaNYL citrate 100 MCG/2 ML VIAL IV PRN (13:55)
[2021-08-31] MEDS ORDERED: ATROPINE SULFATE 0.1 MG/ML 10ML SYR IV PRN (13:55)
[2021-08-31] MEDS ORDERED: ONDANSETRON INJ 2 MG/ML 2 ML VIAL IV PRN (13:55)
[2021-08-31] MEDS ORDERED: MIDAZOLAM HCL 1 MG/ML 2ML VIAL ONE (16:04)
[2021-08-31] MEDS ORDERED: fentaNYL citrate 100 MCG/2 ML VIAL ONE (16:04)
--- NOTE | 2021-08-31 16:19 | Operative Report ---
PG Post Operative Report Pre & Post Diagnosis Operation Date: 08/31/21 10:30 Pre-Op Diagnosis: right kidney and ureteral stones Post-Op Diagnosis: right kidney and ureteral stones I identified the patient and participated in the time-out.: Yes Procedure Operation Date: 08/31/21 10:30 Actual Procedures p Cystoscopy, Right Stent Ureteral Insertion - Chance Quinn MD Surgeon Chance Quinn MD Test Facility Engineer none Estimated Blood Loss 0 Findings Consistent with Post-Op Diagnosis Specimens none Description of Procedure The patient was identified in the preoperative holding area, appropriate informed consents were reviewed and completed and the patient was transferred to the operative suite. Upon arrival, appropriate antibiotics and anesthesia were administered and the patient was placed in dorsal lithotomy position and prepped and draped in sterile fashion. To begin the case I passed a 22 Spanish cystoscope with 30 degree lens. Inspection revealed a healthy-appearing bladder with some cystitis cystica. After my inspection interim attention the right UO and cannulated with a sensor wire. I immediately had a discharge of pus after the wire bypassed the distal right ureteral stone. This was stone was easily visible on fluoroscopy. I then advanced the wire to the kidney and saw good curl within the kidney. I placed a 6 Spanish by 24 cm double-J stent seeing more pus drained through and around the stent. I emptied the bladder and concluded the case. She tolerated the procedure very well. She has large stones within the kidney in addition to the ureteral stone. All of them are very visible on fluoroscopy. She did tolerate the procedure well and was reversed of anesthesia and taken to the recovery room in stable condition. There were no complications. I attest to the content of the Intraoperative Record and any orders documented therein. Any exceptions are noted below.
[2021-08-31] MEDS ORDERED: ACETAMINOPHEN 500 MG TAB PO STA (16:31)
[2021-08-31] MEDS ORDERED: ACETAMINOPHEN 500 MG TAB ONE (16:32)
[2021-08-31] MEDS ORDERED: PROPOFOL IV EMULSION 10 MG/ML 20 ML VIAL IV ONE (16:35)
[2021-08-31] MEDS ORDERED: LIDOCAINE 2% 2 ML VIAL/AMP(20MG/ML) INFIL ONE (16:35)
[2021-08-31] MEDS ORDERED: ACETAMINOPHEN 500 MG TAB PO SCH (16:38)
[2021-08-31] MEDS ORDERED: METOPROLOL TARTRATE 1 MG/ML VIAL IV STA (16:48)
--- NOTE | 2021-08-31 16:53 | Fluoroscopy Report ---
FL KUB CLINICAL HISTORY: CYSTO, RT STENT COMPARISON STUDY: CT of the abdomen and pelvis performed earlier today. FLUOROSCOPY TIME: 4 seconds. FLUOROSCOPIC IMAGES: 3 FINDINGS: Fluoroscopy was provided during cystoscopy and right ureteral stent placement. Stent is bree ropriately positioned. A density adjacent to the distal aspect of the ureteral stent likely reflects the calculus shown on CT. Right renal calculi are again noted. IMPRESSION: Fluoroscopy provided during cystoscopy and right ureteral stent placement. ACT 112: Negative or not required by law. Electronically signed by: Gilberto Fontaine M.D. 08/31/2021 4:52 PM
--- NOTE | 2021-08-31 16:56 | Anesthesiology Progress Note ---
Date of Service August 31, 2021 Anesthesia Post Procedure Vital Signs Vital Signs: Temp Pulse Pulse Pulse Resp BP BP 08/31/21 16:50 123 H 22 08/31/21 16:40 120 H 21 08/31/21 16:30 129 H 24 08/31/21 16:23 38.9 C H 142 H 16 08/31/21 14:15 37.3 C 113 H 20 08/31/21 08:42 36.7 C 95 H 18 08/31/21 04:00 36.8 C 71 18 08/31/21 02:30 80 20 144/83 H 08/31/21 00:42 70 20 145/94 H 08/30/21 23:30 76 20 161/89 H 08/30/21 22:25 37.1 C 86 18 146/100 H BP Pulse Ox 08/31/21 16:50 100/74 95 08/31/21 16:40 109/83 97 08/31/21 16:30 105/64 98 08/31/21 16:23 110/81 98 08/31/21 14:15 111/78 99 08/31/21 08:42 131/85 97 08/31/21 04:00 131/83 99 08/31/21 02:30 99 08/31/21 00:42 99 08/30/21 23:30 98 08/30/21 22:25 99 Pain Intensity Right Flank: Pain Intensity: 2 Transfer of Care Handoff Completed per policy Notes Mental Status: alert / awake / arousable Patient Amnestic to Procedure: Yes Nausea / Vomiting: adequately controlled Pain: adequately controlled Airway Patency, RR, SpO2: stable & adequate BP & HR: stable & adequate Hydration State: stable & adequate Anesthetic Complications: no major complications apparent and Pt Satisfied with anesthetic care Notes: The patient is awake and comfortable. She has been tachycardic HR now 110s down from the 140s and febrile likely due to her underlying pyelonephritis. She was given a dose of acetaminophen and will be given a bolus of lactated ringers.
[2021-09-01] MEDS: DULoxetine HCL 20 MG CAP PO SCH (07:32)
[2021-09-01] MEDS: MULTIVITAMIN TAB PO SCH (07:32)
[2021-09-01] MEDS: HYDROCODONE/ACETAMOPHEN 5/325MG TAB PO PRN ×2 (07:32→12:59)
[2021-09-01] MEDS: cefTRIAXone SODIUM 2,000 MG in DEXTROSE 5% 50 ML IV SCH (08:55)
[2021-09-01 09:16] LABS: Basophils # (auto) 0.03 K/uL (0-0.2); Basophils % (auto) 0.2 %; Eosinophils # (auto) 0.03 K/uL (0-0.5); Eosinophils % (auto) 0.2 %; Hematocrit (blood only) 37.7 % (37-47); Hemoglobin 13.1 g/dL (12.0-16.0); Immature Granulocytes # (auto) 0.07 K/uL (0.00-0.02); Immature Granulocytes % (auto) 0.4 %; Lymphocytes # (auto) 0.71 K/uL (1.2-3.4); Lymphocytes % (auto) 4.1 %; Mean Corpuscular Hemoglobin 30.5 pg (25-34); Mean Corpuscular Hgb Conc 34.7 g/dL (32-36); Mean Corpuscular Volume 87.9 fL (80-100); Mean Platelet Volume 9.3 fL (7.4-10.4); Monocytes # (auto) 0.94 K/uL (0.11-0.59); Monocytes % (auto) 5.4 %; Neutrophils % (auto) 89.7 %; Platelet Count 270 K/uL (130-400); RDW Coefficient of Variation 13.3 % (11.5-14.5); RDW Standard Deviation 42.4 fL (36.4-46.3); Red Blood Count 4.29 M/uL (4.2-5.4); White Blood Count 17.28 K/uL (4.8-10.8)
[2021-09-01 09:36] LABS: Albumin Globulin Ratio 1.2 (0.9-2); Albumin Level 3.6 gm/dl (3.4-5.0); BUN Creatinine Ratio 10.4 (10-20); Bilirubin,Total 0.6 mg/dl (0.2-1.0); Calcium 8.8 mg/dl (8.5-10.1); Creatinine Clr Calc Pharmacy 100.3 ml/min; Est GFR (African American) 90.7 ml/min; Est GFR (Non-African American) 78.3 ml/min; Magnesium 1.6 mg/dl (1.7-2.4); Potassium 3.7 mmol/L (3.5-5.1); Total Protein 6.6 gm/dl (6.0-8.3)
[2021-09-01] MEDS: LACTATED RINGER'S 1,000 ML IV SCH ×2 (09:43→21:21)
--- NOTE | 2021-09-01 10:06 | Urology Progress Note ---
Date of Service September 01, 2021 Assessment & Plan (1) Right ureteral calculus: (2) Hydronephrosis, right: Plan: 31yo F who presented with intractable right flank pain with associated nausea vomiting and found to have an obstructive 11 mm stone in the distal right ureter with moderate to severe hydroureteronephrosis and multiple nonobstructive stones also seen in the right kidney collecting system. - POD #1 s/p cystoscopy, right ureteral stent placement. - Subjectively feeling much better and tolerating the ureteral stent with minimal bother. - Afebrile this morning. - TMAX 38.9 yesterday at 1623 - Labs reviewed - Wbc down from 22.22-17.28 today, Creatinine 0.96. - Urinalysis without evidence of infection, no culture pending at present. - Blood culture pending. On IV Ceftriaxone. - Okay to d/c from perspective when medically stable. - Recommend d/c with course of PO antibiotics, Tamsulosin, prn Pyridium and prn pain medication for stent management - Will arrange outpatient follow-up with our service to arrange definitive stone treatment. - Continue supportive care, antibiotic therapy, and prn pain management. - Thank you for allowing us to participate in the acute care of Ms. Adam. Please reconsult us with additional questions, concerns or changes in patient status. Admission and Anticipated Discharge Date Admission Date: August 31, 2021 Supervising Physician Co-Signing Physician Notes Discussed patient with NOEL. Agree with plan. Subjective POD #1 s/p cysto, stent Pt examined at bedside this AM. Awake, resting in bed on arrival. No acute distress. Reports she is feeling much better today. She did have a headache this morning, but that has resolved. Still with mild right flank discomfort/tenderness, but pain has significantly improved following stent placement. No fever or chills. Tolerating diet, no nausea or vomiting. Voiding without issue. Denies hematuria/dysuria. Review of Systems Constitutional: as per Subjective / HPI Gastrointestinal: as per Subjective / HPI Genitourinary: as per Subjective / HPI Physical Exam Constitutional: cooperative and comfortable; no acute distress Respiratory: normal respiratory effort; no respiratory distress and no labored breathing Gastrointestinal (Abdomen): Inspection/Auscultation: abdomen normal to inspection Mild right sided flank tenderness with palpation Neurologic: moves all extremities and awake Psychiatric: Orientation: alert and oriented x 3 Results & Data ([facility]) Vital Signs (Past 12 Hours) Vital Signs Temp Pulse Resp BP Pulse Ox 09/01/21 07:42 36.8 C 107 H 18 128/84 98 09/01/21 03:57 36.6 C 95 H 18 110/70 95 09/01/21 00:08 37.0 C 100 H 18 105/65 97 08/31/21 22:57 36.6 C 105 H 16 105/70 97 PG Care Time/CCT Total # of Minutes Spent Total Time Spent with Patient: Total time spent is greater than 50% in coordination of care (as documented) at patient's floor/unit and/or counseling patient: Coding Level of Care Code 92936 Subseq Hosp Care Lvl 2 Diagnoses Right ureteral calculus N20.1 Hydronephrosis, right N13.30
[2021-09-01] MEDS: MAGNESIUM SULFATE / D5W 1 GM/100 ML BAG IV SCH ×2 (10:47→12:54)
[2021-09-01] MEDS: HYDROmorphone INJ 0.5 MG/0.5 ML SYR IV PRN (15:12)
[2021-09-01] MEDS ORDERED: KETOROLAC 30 MG/ML VIAL IV ONE (15:24)
[2021-09-01] MEDS: NICOTINE 7 MG/24 HR TDSY TD SCH (16:23)
[2021-09-01] MEDS ORDERED: PHENAZOPYRIDINE HCL 200 MG TAB PO PRN (16:26)
--- NOTE | 2021-09-01 16:31 | Hospitalist Progress Note ---
Date of Service September 01, 2021 Assessment & Plan (1) Pyelonephritis: Plan: 31-year-old white female presented with right flank pain. Found to have leukocytosis of 22.2 with a left shift and radiographic evidence of perinephritic fat stranding consistent with pyelonephritis. She has marked right-sided CVA tenderness. Patient with an obstructing ureteral stone seen on imaging. Overnight stat rad initially read the film as perinephritic fat stranding but in-house radiologist makes no mention of pyelonephritis. At any rate, would continue antibiotics Despite pyelonephritis and obstructive uropathy, she is not septic. She is afebrile and hemodynamically stable Continue empiric antibiotics (Rocephin) Urinalysis with culture ordered upon admission but remained uncollected. When seen by myself on 08/31, reiterated importance of culture data to nursing staff who did collect the culture. This was sent to microbiology. The only thing available is a urinalysis. I called micro and they did not send it for a culture Unfortunately, no available culture data to help guide treatment thus will have to gauge clinically (white blood cell count, pain, fevers and hemodynamics). -- Thus far, she seems to be showing favorable response. She has been afebrile and her tachycardia resolved. Her white blood cell count is downtr ending. Her CVA tenderness resolved --History of Proteus Mirabilis with zamudio sensitivity Blood cultures missing from ED work-up. Ordered 08/31. No growth to date (2) Right ureteral calculus: Plan: Urology consultedappreciate assistance S/p ureteral stent done 08/31 Will need discharged with Pyridium, Flomax, antibiotics, and follow-up to see urology for definitive stone treatment. Likely will need ESWL. 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 Admission and Anticipated Discharge Date Admission Date: August 31, 2021 Subjective Patient seen on daily rounds today. Overall she reports she is feeling better. Her dysuria has resolved but she is having some mild flank discomfort which she be due to stent irritation. Otherwise, she denies fevers, chills, chest pain, shortness of breath, abdominal pain, nausea or vomiting. Review of Systems Review of Systems: All systems reviewed and are unremarkable except as noted in HPI and below Denies fevers, chills, headache, nasal congestion, sore throat, cough, chest pain, shortness of breath, palpitations, orthopnea, PND, abdominal pain, nausea, vomiting, diarrhea, constipation, dysuria, hematuria, frequency, back pain, joint pain or swelling, easy bruising or bleeding, skin lesions or rashes. Physical Exam Physical Exam: General: Resting comfortably in her hospital bed. She does not appear toxic NAD. HEENT: Head is AT/NC. Buccal mucosa is moist and pink Neck: No JVD. Negative hepatojugular reflex Cardiac: RRR without M/G/R Lungs: CTA without W/R/R Abdomen: Normoactive X4. Abdomen soft with suprapubic tenderness. Right-sided CVA tenderness has resolved Extremities: No peripheral clubbing cyanosis or edema Neuro: A&O X4. Cranial nerves II through XII are grossly intact. No focal neuro deficits Skin: No obvious skin lesions or rashes Psych: Appropriate affect. Pleasant and cooperative Results & Data Results & Data ([facility]) Vital Signs (Past 12 Hours) Vital Signs Temp Pulse Resp BP Pulse Ox 09/01/21 07:42 36.8 C 107 H 18 128/84 98 Laboratory Results 09/01/21 08:39 09/01/21 08:39 PG Care Time/CCT Total # of Minutes Spent Total Time Spent with Patient: Total time spent is greater than 50% in coordination of care (as documented) at patient's floor/unit and/or counseling patient: Coding Level of Care Code 82058 Subseq Hosp Care Lvl 2 Diagnoses Pyelonephritis N12 Right ureteral calculus N20.1 Depression with anxiety F41.8
[2021-09-01] MEDS ORDERED: KETOROLAC TROMETHAMINE 15 MG/ML VIAL IV ONE (22:07)
[2021-09-01] MEDS ORDERED: KETOROLAC TROMETHAMINE 15 MG/ML VIAL ONE (22:13)
[2021-09-02] MEDS ORDERED: KETOROLAC TROMETHAMINE 15 MG/ML VIAL IV ONE (06:17)
[2021-09-02 06:30] LABS: Hematocrit (blood only) 35.9 % (37-47); Hemoglobin 12.1 g/dL (12.0-16.0); Mean Corpuscular Hemoglobin 29.7 pg (25-34); Mean Corpuscular Hgb Conc 33.7 g/dL (32-36); Mean Platelet Volume 9.3 fL (7.4-10.4); Platelet Count 234 K/uL (130-400); RDW Coefficient of Variation 13.2 % (11.5-14.5); RDW Standard Deviation 43.1 fL (36.4-46.3); Red Blood Count 4.08 M/uL (4.2-5.4); White Blood Count 12.63 K/uL (4.8-10.8)
[2021-09-02 06:52] LABS: Calcium 8.6 mg/dl (8.5-10.1); Creatinine Clr Calc Pharmacy 117.5 ml/min; Est GFR (African American) 109.7 ml/min; Est GFR (Non-African American) 94.7 ml/min; Potassium 3.5 mmol/L (3.5-5.1)
[2021-09-02] MEDS: LACTATED RINGER'S 1,000 ML IV SCH (07:30)
[2021-09-02] MEDS: MULTIVITAMIN TAB PO SCH (08:14)
[2021-09-02] MEDS: DULoxetine HCL 20 MG CAP PO SCH (08:14)
[2021-09-02] MEDS: NICOTINE 7 MG/24 HR TDSY TD SCH (08:14)
[2021-09-02] MEDS: HYDROCODONE/ACETAMOPHEN 5/325MG TAB PO PRN (08:15)
[2021-09-02] MEDS: cefTRIAXone SODIUM 2,000 MG in DEXTROSE 5% 50 ML IV SCH (08:16)
--- NOTE | 2021-09-02 11:55 | Discharge Summary ---
Date of Service September 02, 2021 Admission HPI Per Admitting Provider The patient is a 31-year-old female with a past medical history including depression with anxiety, PCOS, acute pyelonephritis and prediabetes. She presents to the emergency department complaining of right flank pain. Work-up in the emergency department included a CT scan of abdomen pelvis without contrast which showed an 11 mm distal right ureteral stone with marked right hydroureteronephrosis. Abnormal laboratories: WBC 22.22, AST 51, ALT 56, and glucose 157. Principal Diagnosis Acute right-sided pyelonephritis Obstructive right ureteral calculus Leukocytosis--resolved Discharge Data Allergies Allergy/AdvReac Type Severity Reaction Status Date / Time sulfamethoxazole Allergy Intermediate RASH Verified 08/30/21 22:50 trimethoprim Allergy Intermediate RASH Verified 08/30/21 22:50 Consultations 08/31/21 02:53 ED Decision to Admit Stat Procedures Performed Operation Date: 08/31/21 10:30 Actual Procedures p Cystoscopy, Right Stent Ureteral Insertion - Chance Quinn MD Ordered Studies 08/30/21 23:08 CT abd pelvis wo con Urgent 08/31/21 16:01 FL KUB Routine Hospital Course (1) Pyelonephritis: 31-year-old white female presented with right flank pain. Found to have leukocytosis of 22.2 with a left shift and radiographic evidence of perinephritic fat stranding consistent with pyelonephritis. She has marked right-sided CVA tenderness. Patient with an obstructing ureteral stone seen on imaging. Overnight stat rad initially read the film as perinephritic fat stranding but in-house radiologist makes no mention of pyelonephritis. At any rate, would continue antibiotics Despite pyelonephritis and obstructive uropathy, she is not septic. She is afebrile and hemodynamically stable Continue empiric antibiotics (Rocephin) Urinalysis with culture ordered upon admission but remained uncollected. When seen by myself on 08/31, reiterated importance of culture data to nursing staff who did collect the culture. This was sent to microbiology. The only thing available is a urinalysis. I called micro and they did not send it for a culture Unfortunately, no available culture data to help guide treatment thus will have to gauge clinically (white blood cell count, pain, fevers and hemodynamics). -- Thus far, she seems to be showing favorable response. She has been afebrile and her tachycardia resolved. Her white blood cell count is downtrending. Her CVA tenderness resolved --History of Proteus Mirabilis with zamudio sensitivity Blood cultures missing from ED work-up. Ordered 08/31. No growth to date (2) Right ureteral calculus: Urology consultedappreciate assistance S/p ureteral stent done 08/31 Will need discharged with Pyridium, Flomax, antibiotics, and follow-up to see urology for definitive stone treatment. Likely will need ESWL. 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 Total Time Total Time Spent Total Time Spent (In Minutes): >30 minutes Discharge Plan Discharge Items Patient Disposition: Home - Self-Care Reason For Visit: DISTAL RIGHT URETERAL STONEWITH RIGHT HYDRO Discharge Diagnosis: R-sided kidney stone with kidney infection Activity: Resume your previous activity Non-emergency contact: Primary Care Provider and Urologist Call non-emergency contact if: you have any medication questions, your symptoms worsen, your pain is worsening and your temperature is above 101 Follow-up/Referrals: Dawna Luz CRNP [Primary Care Provider] - Chance Quinn MD [Physician] - 09/09/21 10:20 am Diet: Regular Addtl Attending Provider Instructions: You were hospitalized due to a kidney stone in your right ureter (the tube that connects your kidney to your bladder) which was causing urine to back up into your right kidney. This was causing your kidney to swell. In addition, it is favored that you also have an infection in your urinary tract that has ascended up and infected/inflamed your right kidney. For this reason, you were started on antibiotics through your IV, given pain medications, and IV fluids. Urology was consulted and you underwent placement of a stent in your right ureter. Urology will follow up with you in their office on September 09 to discuss treatment for your kidney stones. For now, you will be continued on a course of oral antibiotics in the form of Augmentin 875-125mg, 1 tablet by mouth (with food) taken twice per day. You need to complete this course as prescribed. You can start this antibiotic on 09/03/21. You are also being prescribed Flomax 0.4mg, take this once per day (before bed), start this tonight (09/02). This is to help relax the smooth muscle in your urinary tract to allow urine to flow better. Last, you're being prescribed Pyridium 200mg that you can take up to three times per day as needed for pain related to your stent. Just note: this medication can turn your bodily fluids ORANGE. This is NORMAL. Your remaining medications can be taken as prescribed without change. Please contact your family healthcare provider to arrange for a post-hospital follow up ideally within 1 week of discharge. In the event of any questions/concerns, please call the nonemergency number listed on your discharge paperwork. In the event of a medical emergency, call 911. Addtl Event Sales Manager Provider Instructions: Please call the urology office at [phone] with any questions, concerns or need to reschedule appointments for any reason. We are happy to assist you. While you have a ureteral stent in place: Some discomfort is normal. Certain movements may trigger pain or a feeling that you need to urinate. You may also feel mild soreness or pressure before or during urination. These symptoms should go away a few days after the stent is removed. Your urine may be slightly pink or red. This is due to bleeding caused by minor irritation from the stent. This may happen on and off while you have the stent, it is not harmful and is to be expected. Medication to help minimize discomfort or bladder spasms, or to prevent infection may be prescribed. Take this as directed. Drink plenty of fluids to help flush out your urinary tract. When to call [facility] at [phone]: Your urine contains heavy blood clots or you are unable to urinate. Fever of 101F or higher, chills, nausea, or vomiting Your pain is not relieved with medication The end of the stent comes out of your urethra Pending Studies at Discharge: No Stand-Alone Forms: My [employer], Smoking Cessation Medications and DC Order Prescriptions: New phenazopyridine [Pyridium] 200 mg Tablet 200 mg PO TID PRN (Reason: pain) Qty: 8 RF: 0 tamsulosin [Flomax] 0.4 mg capsule 0.4 mg PO HS Qty: 30 RF: 0 amoxicillin-pot clavulanate 875-125 mg tablet 1 tab PO BID Qty: 20 RF: 0 Continued duloxetine 40 mg capsule,delayed release(DR/EC) 40 mg PO QAM Qty: 30 RF: 5 norethindrone (contraceptive) 0.35 mg tablet 0.35 mg PO DAILY RF: 0 multivitamin Tablet 1 tab PO QAM RF: 0 ondansetron 4 mg tablet,disintegrating 4 mg PO Q4H PRN (Reason: nausea and vomiting) Qty: 8 RF: 0 Discharge Orders: Discharge Order (Routine); Ordered 09/02/21 Ordered By: Kia Gao Admission Data Admit Date/Time: 08/31/21 03:21 Attending Provider: Andre Oviedo Admit Provider: Leonel Black Primary Care Provider: Dawna Luz Other Providers: Leonel Black Other Interventions: Discharge Summary Assessment (RN) Last Done: 09/02/21 13:41 Supervising Physician Co-Signing Physician Notes I personally examined the patient and verified all ramirez points of history and exam, discussed case, and agree with decision making with Catrachito Gao PAC feeling good enough to go home vitals noted nad heent nc at mmm breathing unlabored no accessory muscles good effort skin no rashes no pallor or icterus pyelonephritis, kidney stone - safe/stable for home, PO abx, close and ongoing outpt f/u Coding Level of Care Code D/C DAY MANAGEMENT >30 MINS Diagnoses Pyelonephritis N12 Right ureteral calculus N20.1 Depression with anxiety F41.8
== END 2021-09-02 15:31 | disposition home or self-care (01) | DRG 661 ==
LOC: ED 22:20 → SUATTDRO 08-31 03:21 → 3N 08-31 03:21

== ENCOUNTER 2021-09-25 19:42 | Observation (INO) ==
[2021-09-25] MEDS ORDERED: KETOROLAC 30 MG/ML VIAL IV STA (19:57)
[2021-09-25] MEDS ORDERED: SODIUM CHLORIDE 0.9% 1000ML 1,000 ML IV STA (19:57)
--- NOTE | 2021-09-25 20:02 | Emergency Department Note ---
History of Present Illness General Chief complaint: Flank Pain Stated complaint: HAD SURGERY . STENT CAME OUT- KIDNEY PAIN Time Seen by Provider: 09/25/21 19:50 History of Present Illness Maximum Pain Intensity: 10 31-year-old female presents to the ED with a chief complaint of right-sided flank pain radiating to the right groin. She states that she had lithotripsy on Monday. She had a stent in place at that time but the stent fell out yesterday. She began having worsening pain today and decided to come to the ED for further evaluation of her symptoms. Denies any fevers. Some hematuria. No nausea or vomiting. Pain is a throbbing pain that is occasionally sharp in the right flank area. Home Medications Medication Instructions Recorded Confirmed Type multivitamin 1 tab PO QAM 06/21/20 09/25/21 History duloxetine 40 mg capsule,delayed 40 mg PO QAM #30 cap 03/19/21 09/25/21 Rx release norethindrone (contraceptive) 0.35 0.35 mg PO QAM 08/30/21 09/25/21 History mg tablet tamsulosin 0.4 mg capsule (Flomax) 0.4 mg PO HS #30 cap 09/02/21 09/25/21 Rx oxybutynin chloride 5 mg 5 mg PO QAM 09/20/21 09/25/21 History tablet,extended release 24 hr (Ditropan XL) ciprofloxacin HCl 500 mg tablet 500 mg PO BID #6 tab 09/21/21 09/25/21 Rx (Cipro) hydrocodone 5 mg-acetaminophen 325 1 tab PO Q6H PRN #15 tab 09/21/21 09/25/21 Rx mg tablet Allergies Allergy/AdvReac Type Severity Reaction Status Date / Time sulfamethoxazole Allergy Intermediate RASH Verified 09/25/21 20:55 trimethoprim Allergy Intermediate RASH Verified 09/25/21 20:55 Past Med/Surg History Medical History Depression with anxiety Hypertriglyceridemia Per 2019 PCP records- pt denies Kidney stones Morbid obesity PCOS (polycystic ovarian syndrome) Prediabetes Per 2019 PCP records Surgical History H/O wisdom tooth extraction History of kidney surgery 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 Hx of section x1 S/P cystoscopy with ureteral stent placement Family History Grandmother (Paternal) Diabetes Other No family history of adverse response to anesthesia Social History Smoking Status: Former smoker Tobacco Type: Cigarettes Cigarettes Per Day: 3; Second Hand Exposure: No; Hx Alcohol Use: No Hx Substance Use: Yes Last Used Substance Other:: 6+ months ago Preferred Language: Serbian Communication Ability: Effective Financial Manager Required: No Beliefs That Will Affect Care: None Current Living Situation: Family and Significant Other Feels Safe at Home: Yes Assistive Devices: None Review of Systems A total of 10 systems reviewed and were otherwise negative Physical Exam Vital Signs Vital Signs - 24 hr 09/25/21 19:43 Temperature 36.4 C L Temperature Source Temporal Artery Scan Pulse Rate 75 Respiratory Rate 18 Blood Pressure 139/90 Blood Pressure Mean 106 Pulse Oximetry 96 Oxygen Delivery Method Room Air Sepsis Recent Fever Within 48 Hours No Sepsis New/Unexplained Change in Mental Status N/A Sepsis Action Taken by Nursing No Action Required CONSTITUTIONAL/VITAL SIGNS: Reviewed / noted above. GENERAL: Non-toxic in appearance. INTEGUMENTARY: Warm, dry, and [place]. HEAD: Normocephalic. EYES: without scleral icterus or trauma. ENT/OROPHARYNX: clear and moist. LYMPHADENOPATHY/NECK: Is supple without lymphadenopathy or meningismus. RESPIRATORY: Clear to auscultation bilaterally. No increased work of breathing. CARDIOVASCULAR: Regular rate and rhythm. GI/ABDOMEN: Soft and mildly tender in the suprapubic area. No organomegaly or pulsatile mass. EXTREMITIES: Warm and well perfused. BACK: Right CVA tenderness. NEUROLOGICAL: Intact without focal deficits. PSYCHIATRIC: normal affect. MUSCULOSKELETAL: Normally developed with good muscle tone. TRIAGE NURSING DOCUMENTATION REVIEWED. Course Administered Medications Discontinued Medications Sodium Chloride (Nss 1000ml) 1,000 mls @ 999 mls/hr IV .Q1H1M STA Stop: 09/25/21 20:57 Last Infusion: 09/25/21 21:17 Dose: 0 mls/hr Documented by: [id number] Admin: 09/25/21 20:15 Dose: 999 mls/hr Documented by: [id number] Ceftriaxone Sodium (Rocephin) 2,000 mg in 70 mls @ 140 mls/hr IV NOW STA Stop: 09/25/21 21:16 Last Admin: 09/25/21 21:04 Dose: 140 mls/hr Documented by: [id number] Ketorolac Tromethamine (Ketorolac 30 Mg/Ml Vial) 30 mg IV NOW STA Stop: 09/25/21 19:58 Last Admin: 09/25/21 20:15 Dose: 30 mg Documented by: [id number] Medical Decision Making Differential Diagnosis Differential considered: pancreatitis, hepatitis, acute cholecystitis, AAA, UTI, pyelonephritis, kidney stones, appendicitis, diverticulitis, shingles, bowel obstruction, mesenteric ischemia, intussusception,hernia,ovarian torsion, ruptured ovarian cyst,ectopic , . Medical Records Attestation: I reviewed the patient's medical records. Home Medications Current Medication List: was personally reviewed by me Laboratory Data Attestation: I reviewed the patient's lab results. Result diagrams: 09/25/21 20:07 09/25/21 20:07 Lab Results 09/25/21 09/25/21 09/25/21 Range/Units 20:07 20:07 20:07 WBC 17.41 H (4.8-10.8) K/uL RBC 4.48 (4.2-5.4) M/uL Hgb 13.3 (12.0-16.0) g/dL Hct 39.0 (37-47) % MCV 87.1 (80-100) fL MCH 29.7 (25-34) pg MCHC 34.1 (32-36) g/dL RDW Std Deviation 42.0 (36.4-46.3) fL RDW Coeff of Hai 13.2 (11.5-14.5) % Plt Count 401 H (130-400) K/uL MPV 9.1 (7.4-10.4) fL Immature Gran % (Auto) 0.3 % Neut % (Auto) 71.8 % Lymph % (Auto) 18.2 % Woodruff % (Auto) 6.3 % Eos % (Auto) 3.1 % Baso % (Auto) 0.3 % Neut # (Auto) 12.51 H (1.4-6.5) K/uL Lymph # (Auto) 3.17 (1.2-3.4) K/uL Woodruff # (Auto) 1.09 H (0.11-0.59) K/uL Eos # (Auto) 0.54 H (0-0.5) K/uL Baso # (Auto) 0.05 (0-0.2) K/uL Immature Gran # (Auto) 0.05 H (0.00-0.02) K/uL Sodium 138 (136-145) mmol/L Potassium 3.9 (3.5-5.1) mmol/L Chloride 105 (98-107) mmol/L Carbon Dioxide 25 (21-32) mmol/L Anion Gap 8 (3-11) BUN 15 (6-23) mg/dl Creatinine 1.05 (0.6-1.2) mg/dl Est Cr Clr Drug Dosing 89.3 ml/min Est GFR ( Amer) 81.4 ml/min Est GFR (Non-Af Amer) 70.2 ml/min BUN/Creatinine Ratio 14.3 (10-20) Glucose 127 H (70-99(Fasting)) mg/dl Calcium 9.4 (8.5-10.1) mg/dl Total Bilirubin 0.4 (0.2-1.0) mg/dl AST 28 (13-39) U/L ALT 41 (7-52) U/L Alkaline Phosphatase 63 (34-104) U/L Total Protein 7.2 (6.0-8.3) gm/dl Albumin 4.2 (3.4-5.0) gm/dl Globulin 3.0 (2.5-4.0) gm/dl Albumin/Globulin Ratio 1.4 (0.9-2) Lipase 20 (11-82) U/L Urine Color Yellow Urine Appearance Clear (Clear) Urine pH 5.0 (4.5-7.5) Ur Specific [place] 1.022 (1.000-1.030) Urine Protein Trace H (Negative) Urine Glucose (UA) Negative (Negative) Urine Ketones Negative (Negative) Urine Blood 3+ H (Negative) Urine Nitrite Negative (Negative) Urine Bilirubin Negative (Negative) Urine Urobilinogen Negative (Negative) Ur Leukocyte Esterase 1+ H (Negative) Urine WBC (Auto) >30 H (0-5) /hpf Urine RBC (Auto) >30 H (0-4) /hpf U Hyaline Cast (Auto) 5-10 H (0-5) /lpf U Epithel Cells (Auto) >30 H (0-5) /lpf Urine Bacteria (Auto) Negative (Negative) POC Ur Test (NEG) 09/25/21 Range/Units 20:07 WBC (4.8-10.8) K/uL RBC (4.2-5.4) M/uL Hgb (12.0-16.0) g/dL Hct (37-47) % MCV (80-100) fL MCH (25-34) pg MCHC (32-36) g/dL RDW Std Deviation (36.4-46.3) fL RDW Coeff of Hai (11.5-14.5) % Plt Count (130-400) K/uL MPV (7.4-10.4) fL Immature Gran % (Auto) % Neut % (Auto) % Lymph % (Auto) % Woodruff % (Auto) % Eos % (Auto) % Baso % (Auto) % Neut # (Auto) (1.4-6.5) K/uL Lymph # (Auto) (1.2-3.4) K/uL [place] # (Auto) (0.11-0.59) K/uL Eos # (Auto) (0-0.5) K/uL Baso # (Auto) (0-0.2) K/uL Immature Gran # (Auto) (0.00-0.02) K/uL Sodium (136-145) mmol/L Potassium (3.5-5.1) mmol/L Chloride (98-107) mmol/L Carbon Dioxide (21-32) mmol/L Anion Gap (3-11) BUN (6-23) mg/dl Creatinine (0.6-1.2) mg/dl Est Cr Clr Drug Dosing ml/min Est GFR ( Amer) ml/min Est GFR (Non-Af Amer) ml/min BUN/Creatinine Ratio (10-20) Glucose (70-99(Fasting)) mg/dl Calcium (8.5-10.1) mg/dl Total Bilirubin (0.2-1.0) mg/dl AST (13-39) U/L ALT (7-52) U/L Alkaline Phosphatase (34-104) U/L Total Protein (6.0-8.3) gm/dl Albumin (3.4-5.0) gm/dl Globulin (2.5-4.0) gm/dl Albumin/Globulin Ratio (0.9-2) Lipase (11-82) U/L Urine Color Urine Appearance (Clear) Urine pH (4.5-7.5) Ur Specific [place] (1.000-1.030) Urine Protein (Negative) Urine Glucose (UA) (Negative) Urine Ketones (Negative) Urine Blood (Negative) Urine Nitrite (Negative) Urine Bilirubin (Negative) Urine Urobilinogen (Negative) Ur Leukocyte Esterase (Negative) Urine WBC (Auto) (0-5) /hpf Urine RBC (Auto) (0-4) /hpf U Hyaline Cast (Auto) (0-5) /lpf U Epithel Cells (Auto) (0-5) /lpf Urine Bacteria (Auto) (Negative) POC Ur Test NEG (NEG) Imaging Data Radiologist's Impression: CT scan shows a 10 mm distal ureteral stone with severe obstructive changes. MDM Narrative 32-year-old female with a history of kidney stones and recent lithotripsy on Monday, 4 days ago states that her stent fell out yesterday. She began having increasing right flank pain rating to the right groin today. No fevers. No nausea or vomiting. Exam reveals some right-sided CVA tenderness. Her vital signs are stable. Her white blood cell count is 17.4. test was negative. Urine is contaminated but might show infection. The patient is currently on Cipro. CT scan shows a 10 mm distal right ureteral stone with severe hydronephrosis. The patient was given IV Rocephin. She was given some IV fluids as well as IV Toradol. Her pain seems to be under control at this point. She will be seen by the hospitalist for further inpatient evaluation and care. Impression & Plan Calculus of distal right ureter, Hydronephrosis, Leukocytosis Discharge Plan Visit Data Chief Complaint: Flank Pain Stated Complaint: HAD SURGERY TU. STENT CAME OUT- KIDNEY PAIN ED Provider: Diaz Chase Discharge Problem: Calculus of distal right ureter, Hydronephrosis, Leukocytosis Patient Disposition: Being Evaluated by Hospitalist Forms Stand Alone Forms: [employer] [facility] [employer] Prescriptions Prescriptions: No Action duloxetine 40 mg capsule,delayed release(DR/EC) 40 mg PO QAM Qty: 30 RF: 5 norethindrone (contraceptive) 0.35 mg tablet 0.35 mg PO QAM RF: 0 tamsulosin [Flomax] 0.4 mg capsule 0.4 mg PO HS Qty: 30 RF: 0 oxybutynin chloride [Ditropan XL] 5 mg tablet extended release 24 hr 5 mg PO QAM RF: 0 hydrocodone-acetaminophen 5-325 mg tablet 1 tab PO Q6H PRN (Reason: pain) Qty: 15 RF: 0 ciprofloxacin HCl [Cipro] 500 mg tablet 500 mg PO BID Qty: 6 RF: 0 multivitamin Tablet 1 tab PO QAM RF: 0 Referrals Referrals: Dawna Luz CRNP [Primary Care Provider] -
[2021-09-25 20:25] LABS: Basophils # (auto) 0.05 K/uL (0-0.2); Basophils % (auto) 0.3 %; Eosinophils # (auto) 0.54 K/uL (0-0.5); Eosinophils % (auto) 3.1 %; Hemoglobin 13.3 g/dL (12.0-16.0); Immature Granulocytes # (auto) 0.05 K/uL (0.00-0.02); Immature Granulocytes % (auto) 0.3 %; Lymphocytes # (auto) 3.17 K/uL (1.2-3.4); Lymphocytes % (auto) 18.2 %; Mean Corpuscular Hemoglobin 29.7 pg (25-34); Mean Corpuscular Hgb Conc 34.1 g/dL (32-36); Mean Corpuscular Volume 87.1 fL (80-100); Mean Platelet Volume 9.1 fL (7.4-10.4); Monocytes # (auto) 1.09 K/uL (0.11-0.59); Monocytes % (auto) 6.3 %; Neutrophils # (auto) 12.51 K/uL (1.4-6.5); Neutrophils % (auto) 71.8 %; Platelet Count 401 K/uL (130-400); RDW Coefficient of Variation 13.2 % (11.5-14.5); Red Blood Count 4.48 M/uL (4.2-5.4); White Blood Count 17.41 K/uL (4.8-10.8)
[2021-09-25 20:34] LABS: Appearance Urine Clear (Clear); Bacteria Urine Automated Negative (Negative); Bilirubin Urine Negative (Negative); Blood Urine 3+ (Negative); Color Urine Yellow; Epithelial Cell Urine Auto >30 /lpf (0-5); Glucose Urine UA Negative (Negative); Ketones Urine Negative (Negative); Leukocyte Esterase Urine 1+ (Negative); Nitrite Urine Negative (Negative); Protein Urine Trace (Negative); RBC Urine Automated >30 /hpf (0-4); Specific Gravity Urine 1.022 (1.000-1.030); Urobilinogen Urine Negative (Negative); WBC Urine Automated >30 /hpf (0-5)
[2021-09-25] MEDS ORDERED: cefTRIAXone SODIUM 2,000 MG/70 ML BAG IV STA (20:47)
[2021-09-25 21:36] LABS: Albumin Globulin Ratio 1.4 (0.9-2); Albumin Level 4.2 gm/dl (3.4-5.0); BUN Creatinine Ratio 14.3 (10-20); Bilirubin,Total 0.4 mg/dl (0.2-1.0); Calcium 9.4 mg/dl (8.5-10.1); Creatinine Clr Calc Pharmacy 89.3 ml/min; Est GFR (African American) 81.4 ml/min; Est GFR (Non-African American) 70.2 ml/min; Potassium 3.9 mmol/L (3.5-5.1); Total Protein 7.2 gm/dl (6.0-8.3)
--- NOTE | 2021-09-25 22:03 | History & Physical Report ---
Date of Service September 25, 2021 Assessment & Plan (1) Hydronephrosis, right: Plan: 31yo female with a history of nephrolithiasis, pyelonephritis, hydronephrosis, PCOS, and prediabetes who presents with a one-day history of right-sided flank and groin pain. Right-sided flank, groin pain secondary to right nephrolithiasis and hydroureteronephrosis CT abdomen/pelvis: right distal ureter stone (read by statrad as 10mm x 25mm) with severe right hydroureteronephrosis as well as several other right stones, no left stone/hydronephrosis Labwork notable for leukocytosis to 17.4, mild thrombocytosis, and UA notable for blood, leuk esterase, and WBCs; urine culture pending; bhCG negative Ceftriaxone administered x1 in ED; continue 2g IV bid for now NSS @ 150mL/hr Pain control plan: APAP 1000mg q8h prn Toradol 30mg q6h scheduled Morphine 3mg IV q4h prn Urology consulted Continue home tamsulosin, oxybutynin Continue zofran prn Chronic conditions: Depression: continue home duloxetine PCOS: continue home OCP Impaired fasting glucose: repeat A1c ordered FEN: NPO Code status: full code DVT ppx: SCDs Consults: urology Dispo: med/surg (2) Migration of ureteral stent: (3) Nephrolithiasis: History of Present Illness Primary Care Provider: FUENTES Galvez 31yo female with a history of nephrolithiasis, pyelonephritis, hydronephrosis, PCOS, and prediabetes who presents with a one-day history of right-sided flank and groin pain. Patient has a history of nephrolithiasis, including right cystoscopy and ureteral stent placement on 08/31, then re-placed on 09/03. Patient was noted on follow-up with heavy stone burden and was told she would likely require staged procedures to clear it all. Patient underwent repeat lithotripsy and stent placement on the right side again on 09/20. Patient notes this fell out the next day, and it was placed again that day on 09/21. Patient notes that this morning she developed severe right-sided flank pain that radiates to the groin, and notes this feels like other stones. Patient tried taking vicodin she was dicharged with, but that it isn't helping. Patient notes associated nausea, vomiting, and hematuria. Patient does note that her symptoms have greatly improved since arriving to the ED. Patient denies fever, chills, CP, SOB, left-sided abdominal symptoms, burning with urination, bowel symptoms, or other symptoms. Allergies Allergy/AdvReac Type Severity Reaction Status Date / Time sulfamethoxazole Allergy Intermediate RASH Verified 09/25/21 20:55 trimethoprim Allergy Intermediate RASH Verified 09/25/21 20:55 Home Medications Medication Instructions Recorded Confirmed Type multivitamin 1 tab PO QAM 06/21/20 09/25/21 History duloxetine 40 mg capsule,delayed 40 mg PO QAM #30 cap 03/19/21 09/25/21 Rx release norethindrone (contraceptive) 0.35 0.35 mg PO QAM 08/30/21 09/25/21 History mg tablet tamsulosin 0.4 mg capsule (Flomax) 0.4 mg PO HS #30 cap 09/02/21 09/25/21 Rx oxybutynin chloride 5 mg 5 mg PO QAM 09/20/21 09/25/21 History tablet,extended release 24 hr (Ditropan XL) ciprofloxacin HCl 500 mg tablet 500 mg PO BID #6 tab 09/21/21 09/25/21 Rx (Cipro) hydrocodone 5 mg-acetaminophen 325 1 tab PO Q6H PRN #15 tab 09/21/21 09/25/21 Rx mg tablet Past Med/Surg History Medical History Depression with anxiety Hypertriglyceridemia Per 2019 PCP records- pt denies Kidney stones Morbid obesity PCOS (polycystic ovarian syndrome) Prediabetes Per 2020 PCP records Surgical History H/O wisdom tooth extraction History of kidney surgery 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 Hx of section x1 S/P cystoscopy with ureteral stent placement Family History Grandmother (Paternal) Diabetes Other No family history of adverse response to anesthesia Social History Smoking Status: Current every day smoker Tobacco Type: Cigarettes Cigarettes Per Day: 5; Second Hand Exposure: No; Do You Dip or Chew Tobacco: No; Tobacco Cessation Education Requested by Patient: No Hx Alcohol Use: Yes Alcohol type: wine Hx Substance Use: No Preferred Language: Korean Communication Ability: Effective [employer] Required: No Beliefs That Will Affect Care: None Current Living Situation: Family Feels Safe at Home: Yes Safety Concerns: Feels Safe At This Time Assistive Devices: None Review of Systems Review of Systems: See HPI Physical Exam Physical Exam: Constitutional: well-appearing, no acute distress CV: regular rhythm, no murmur appreciated, extremities well-perfused, no LE edema Resp: CTABL, no wheezes/rales/rhonchi appreciated, no increased work of breathing GI: soft, nondistended, severe right-sided abdominal tenderness without rebound or guarding, no left-sided tenderness, BS present MSK: severe right-sided flank tenderness, left side nontender Skin: warm, dry, no rash appreciated Neuro: alert, oriented, no focal neurologic deficit appreciated Results & Data Results & Data ([facility]) Vital Signs (Past 12 Hours) Vital Signs Temp Pulse Resp BP Pulse Ox 09/25/21 19:43 36.4 C L 75 18 139/90 96 Supervising Physician Co-Signing Physician Notes Patient seen and examined, chart reviewed,case discussed with Dr. Whitehead and I agree with the assessment and plan as above. Patient with large ureterolithiasis, had recent lithotripsy. No dysuria, no fever. Pain is well controlled. Normal UOP. Unremarkable exam Abd nontender +S1/S2, regular Lungs CTA Labs and images reviewed Assessment/plan -Pain control, antiemetics -Continue Flomax -Urology consultation Resident Activity Tracking Resident Involvement: Resident Care Provided Care Provided: Adult Hospital Medicine
--- NOTE | 2021-09-25 23:08 | Urology Consultation ---
Date of Consultation September 25, 2021 Assessment & Plan (1) Nephrolithiasis: The patient is being admitted on the hospital service we recommend proceeding as follows: Provide analgesics Provide antiemetics Hydration measures with IV fluids to be implemented Patient has received antibiotics in form of Rocephin. Would recommend continue antibiotics and await urine culture that has been sent. At that time antibiotics can be tailored based on culture results Implement n.p.o. status At the present time I do not feel an emergent urologic procedure is required as patient has normal renal function, is normotensive, and is afebrile. I do however feel that a stone of this size would not likely pass on its own so I have tentatively scheduled her for cystoscopy with right ureteral stent placement with Dr. Fry 09/26/2021. Additional recommendations be forthcoming based on her clinical course as it unfolds as well as operative findings Supervising Physician Co-Signing Physician Notes Agree with plan noted above. Unclear why patient keeps dislodging stents, however due to large remaining stone burden recommend replacement of stent and then follow-up with Dr. Quinn for second look ureteroscopy. We will attempt to put a slightly longer stent and again as previously done to see if this decreases chance of further issues. History of Present Illness Reason for Consultation: Nephrolithiasis History of Present Illness This is a 31-year-old female with a history of kidney stones in the past. Patient is most recent urologic procedures include a cystoscopy with right ureteral stent exchange on 09/03/[address] Fry and a ureteral stent exchange on 09/21/[address] Quinn. The patient presented to emergency department today due to severe right-sided flank pain. She notes that after her most recent procedure with Dr. Quinn her ureteral stent became dislodged yesterday and ultimately came out. As noted the patient developed some severe right-sided flank pain that radiated to the front of her abdomen with associated nausea and vomiting. She denies any fevers, shakes, or chills. She denies any dysuria but does report hematuria. She notes her most recent oral intake was approximate 12:00 PM today. In the emergency department today she had labs and imaging which independent reviewed. A CT scan of the abdomen and pelvis showed that she had a right-sided ureteral kidney stone measuring 10 mm x 2.5 cm with severe right-sided hydronephrosis. Labs include a CBC were white blood cell count 17.4. Hemoglobin, hematocrit, were normal. Platelet count was 41,000. Chemistry profile showed sodium, potassium, BUN, and creatinine were normal. Urinalysis showed greater than 30 white blood cells per high-power field but was negative for bacteria and negative for nitrite. 1+ leukocyte esterase was noted. A test was noted be negative and a COVID test was negative. At the time of my interview she was resting comfortably in bed and she was in no distress. Allergies Allergy/AdvReac Type Severity Reaction Status Date / Time sulfamethoxazole Allergy Intermediate RASH Verified 09/25/21 20:55 trimethoprim Allergy Intermediate RASH Verified 09/25/21 20:55 Home Medications Medication Instructions Recorded Confirmed Type multivitamin 1 tab PO QAM 06/21/20 09/25/21 History duloxetine 40 mg capsule,delayed 40 mg PO QAM #30 cap 03/19/21 09/25/21 Rx release norethindrone (contraceptive) 0.35 0.35 mg PO QAM 08/30/21 09/25/21 History mg tablet tamsulosin 0.4 mg capsule (Flomax) 0.4 mg PO HS #30 cap 09/02/21 09/25/21 Rx oxybutynin chloride 5 mg 5 mg PO QAM 09/20/21 09/25/21 History tablet,extended release 24 hr (Ditropan XL) ciprofloxacin HCl 500 mg tablet 500 mg PO BID #6 tab 09/21/21 09/25/21 Rx (Cipro) hydrocodone 5 mg-acetaminophen 325 1 tab PO Q6H PRN #15 tab 09/21/21 09/25/21 Rx mg tablet Patient History Medical History Depression with anxiety Hypertriglyceridemia Per 2019 PCP records- pt denies Kidney stones Morbid obesity PCOS (polycystic ovarian syndrome) Prediabetes Per 2019 PCP records Surgical History H/O wisdom tooth extraction History of kidney surgery 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 [employer] Required: No Beliefs That Will Affect Care: None Current Living Situation: Family Feels Safe at Home: Yes Safety Concerns: Feels Safe At This Time Assistive Devices: None Review of Systems Constitutional: no fever and no chills Eyes: no diplopia Ear, Nose, Mouth, Throat: no ear pain Respiratory: no cough and no dyspnea Cardiovascular: no chest pain Gastrointestinal: + abdominal pain (Radiating from right flank), + nausea and + vomiting Genitourinary: as per Subjective / HPI and + hematuria; no dysuria and no urinary frequency Musculoskeletal: + back pain (Right flank) Integumentary: no rash Neurologic: no generalized weakness Physical Exam Constitutional: WD/WN, vitals as above Eyes: no conjunctival abnormality ENMT: Ears: no hearing impairment Neck: trachea midline Respiratory: normal respiratory effort; no respiratory distress and no labored breathing Cardiovascular: Rate/Rhythm: regular rate and regular rhythm Gastrointestinal (Abdomen): Abdomen is soft and nondistended. No rigidity is noted. Bowel sounds are present. There is no pain with palpation. There is no rebound tenderness or guarding. Musculoskeletal: No calf tenderness. Pedal pulses are palpable. Feet are warm and nonmottled Skin: no rashes Neurologic: moves all extremities Psychiatric: A+Ox3, euthymic affect Genitourinary: no CVA tenderness Results & Data ([facility]) Vital Signs (Past 12 Hours) Vital Signs Temp Pulse Pulse Resp BP BP Pulse Ox 09/25/21 22:06 81 18 98 09/25/21 21:43 82 18 135/88 97 09/25/21 19:43 36.4 C L 75 18 139/90 96 PG Care Time/CCT Total # of Minutes Spent Total Time Spent with Patient: Total time spent is greater than 50% in coordination of care (as documented) at patient's floor/unit and/or counseling patient: Coding Level of Care Code 96376 Inpt Consult Level 5 Diagnoses Nephrolithiasis N20.0
[2021-09-25] MEDS: SODIUM CHLORIDE 0.9% 1000ML 1,000 ML IV SCH (23:12)
[2021-09-26] MEDS ORDERED: ACETAMINOPHEN 1000 MG/100 ML IV IV SCH (00:25)
[2021-09-26] MEDS ORDERED: MoRPHine SULFATE 4 MG/ML 1 ML CARP\\VIAL IV PRN (00:25)
[2021-09-26] MEDS ORDERED: ONDANSETRON INJ 2 MG/ML 2 ML VIAL IV PRN ×2 (00:25→13:08)
[2021-09-26] MEDS: KETOROLAC 30 MG/ML VIAL IV SCH ×3 (01:46→14:29)
[2021-09-26] MEDS: ACETAMINOPHEN 1,000 MG/100 ML VIAL IV SCH ×2 (01:47→10:07)
[2021-09-26] MEDS: SODIUM CHLORIDE 0.9% 1000ML 1,000 ML IV SCH ×2 (05:36→12:22)
--- NOTE | 2021-09-26 06:37 | Billing Data ---
Date of Service September 25, 2021 Coding Level of Care Code 55393 Initial Inpt Care Lvl 2
--- NOTE | 2021-09-26 07:22 | CT Scan Report ---
CT abd pelvis wo con CLINICAL HISTORY: right flank pain, stent fell out yesterday COMPARISON STUDY: 08/31/2021 CT DOSE: 1480.23 mGy.cm TECHNIQUE: Standard CT of the Abdomen and Pelvis was performed without IV contrast. The patient did not receive oral contrast. A dose lowering technique was utilized adhering to the principles of MARILYN Elena FINDINGS: Lung base: The lung bases are clear. Abdominal cavity: There is no evidence for abdominal mass, adenopathy or ascites. Liver: The liver is homogeneous in attenuation on these limited noncontrast images..There is mild hep atomegaly. Spleen: The spleen is homogeneous in attenuation on these limited noncontrast images. Pancreas: The pancreas is homogeneous in attenuation on these limited noncontrast images. Gall Bladder: The gallbladder is well distended with no evidence for cholelithiasis, wall thickening or pericholecystic edema.. Adrenal glands: The adrenal glands are normal in size and attenuation on these limited noncontrast im ages. Kidneys: There is increased swelling of the right kidney with perinephric stranding present. There is now marked hydronephrosis and hydroureter to the level of the distal left ureteral calculus. This ma y actually represent multiple stone fragments. Multiple nonobstructing right renal calculi are again seen. No left renal calculi or hydronephrosis are present. Bowel: The bowel loops are normally placed within the abdomen and pelvis without evidence for dilatat ion or obstruction. There is no evidence for mass lesion. There are no inflammatory changes present. There is no evidence for free air. Bladder: There are a few small stones also seen within the bladder suggesting the patient may have benton d lithotripsy. The bladder is contracted. : There is no evidence for pelvic mass or adenopathy. Vasculature: There is no evidence for focal aneurysmal dilatation of the abdominal aorta. Osseous structures: There is no acute osseous pathology. IMPRESSION: 1. Compared to the previous examination, large stone burden is seen in the distal right ureter measur ing at least 11 mm and having the appearance of the multiple small cyst contiguous stones. There is a gain associated marked hydronephrosis and hydroureter on the right to this level. 2. Small stone fragments are also seen within the bladder and the findings suggest that the patient m ay have had interval lithotripsy. 3. No other evidence for acute intra-abdominal or pelvic abnormality on these limited noncontrast mathew ges. ACT 112: Negative or not required by law. Electronically signed by: Arthur Souza M.D. 09/26/2021 7:20 AM
[2021-09-26 07:32] LABS: Basophils # (auto) 0.04 K/uL (0-0.2); Basophils % (auto) 0.4 %; Eosinophils % (auto) 4.4 %; Hematocrit (blood only) 37.3 % (37-47); Hemoglobin 12.8 g/dL (12.0-16.0); Immature Granulocytes # (auto) 0.02 K/uL (0.00-0.02); Immature Granulocytes % (auto) 0.2 %; Lymphocytes # (auto) 3.28 K/uL (1.2-3.4); Lymphocytes % (auto) 28.9 %; Mean Corpuscular Hemoglobin 30.1 pg (25-34); Mean Corpuscular Hgb Conc 34.3 g/dL (32-36); Mean Corpuscular Volume 87.8 fL (80-100); Mean Platelet Volume 9.2 fL (7.4-10.4); Monocytes # (auto) 0.78 K/uL (0.11-0.59); Monocytes % (auto) 6.9 %; Neutrophils # (auto) 6.74 K/uL (1.4-6.5); Neutrophils % (auto) 59.2 %; Platelet Count 337 K/uL (130-400); RDW Coefficient of Variation 13.2 % (11.5-14.5); RDW Standard Deviation 42.5 fL (36.4-46.3); Red Blood Count 4.25 M/uL (4.2-5.4); White Blood Count 11.36 K/uL (4.8-10.8)
[2021-09-26 07:45] LABS: Potassium 3.8 mmol/L (3.5-5.1)
[2021-09-26 07:46] LABS: BUN Creatinine Ratio 11.3 (10-20); Calcium 8.2 mg/dl (8.5-10.1); Creatinine Clr Calc Pharmacy 70.5 ml/min; Est GFR (African American) 61.2 ml/min; Est GFR (Non-African American) 52.8 ml/min
[2021-09-26] MEDS ORDERED: OXYBUTYNIN CHLORIDE XL 5 MG TABCR PO SCH (09:00)
[2021-09-26] MEDS ORDERED: DULoxetine HCL 20 MG CAP PO SCH (09:00)
--- NOTE | 2021-09-26 09:05 | Anesthesiology Consultation ---
Date of Service September 26, 2021 Assessment & Plan (1) Encounter for pre-operative examination: Chart Review Chart Review: Acceptable Risk for Surgery and Patient NOT seen in Pre Admission Testing History Surgery Operation Date: 09/26/21 12:00 Proposed Procedures p Right Ureteral Stent Insertion - Bruce Fry MD Height/Weight Height: 5 ft Weight: 115.6 kg Allergies Allergy/AdvReac Type Severity Reaction Status Date / Time sulfamethoxazole Allergy Intermediate RASH Verified 09/25/21 20:55 trimethoprim Allergy Intermediate RASH Verified 09/25/21 20:55 Medications Home Medications Medication Instructions Recorded Confirmed Last Taken multivitamin 1 tab PO QAM 06/21/20 09/25/21 09/20/21 09:00 duloxetine 40 mg capsule,delayed 40 mg PO QAM #30 cap 03/19/21 09/25/21 09/21/21 09:00 release norethindrone (contraceptive) 0.35 0.35 mg PO QAM 08/30/21 09/25/21 09/20/21 08:30 mg tablet tamsulosin 0.4 mg capsule (Flomax) 0.4 mg PO HS #30 cap 09/02/21 09/25/21 09/20/21 19:00 oxybutynin chloride 5 mg 5 mg PO QAM 09/20/21 09/25/21 09/20/21 08:30 tablet,extended release 24 hr (Ditropan XL) ciprofloxacin HCl 500 mg tablet 500 mg PO BID #6 tab 09/21/21 09/25/21 09/25/21 (Cipro) hydrocodone 5 mg-acetaminophen 325 1 tab PO Q6H PRN #15 tab 09/21/21 09/25/21 Unknown mg tablet Active Medications Generic Name Dose Route Start Last Admin Trade Name Freq PRN Reason Stop Dose Admin Duloxetine HCl 40 mg 09/26/21 09:00 09/26/21 07:42 Duloxetine Hcl 20 Mg Cap PO 10/26/21 08:59 40 mg QAM LUCIANO Administration Sodium Chloride 1,000 mls @ 150 mls/hr 09/25/21 23:00 09/26/21 12:22 Nss 1000ml IV 10/25/21 22:59 150 mls/hr .Q6H40M LUCIANO Administration Acetaminophen 1,000 mg in 100 mls @ 400 mls/hr 09/26/21 01:00 09/26/21 10:25 Ofirmev IV 09/29/21 00:59 Infused Q8H LUCIANO Infusion Protocol Ketorolac Tromethamine 30 mg 09/26/21 02:00 09/26/21 07:42 Ketorolac 30 Mg/Ml Vial IV 10/01/21 01:59 30 mg Q6H LUCIANO Administration Miscellaneous 1 ea 09/26/21 08:00 09/26/21 07:41 Order Awaiting Action: (Norethindrone (Contraceptive) 0.35 Mg Tablet N/A 10/26/21 07:59 Not Given QS LUCIANO Oxybutynin Chloride 5 mg 09/26/21 09:00 09/26/21 07:41 Oxybutynin Chloride Xl 5 Mg Tabcr PO 10/26/21 08:59 5 mg QAM LUCIANO Administration NPO Date Last Intake of Fluids: 09/25/21 Time Last Intake of Fluids: 12:00 Last Intake of Fluids Comment: "Around lunch time." Date Last Intake of Solids: 09/25/21 Time Last Intake of Solids: 12:00 Last Intake of Solids Comment: "Around lunch time." Past Medical History Medical History Depression with anxiety Hypertriglyceridemia Per 2019 PCP records- pt denies Kidney stones Morbid obesity PCOS (polycystic ovarian syndrome) Prediabetes Per 2019 PCP records Past Family History Family History Grandmother (Paternal) Diabetes Other No family history of adverse response to anesthesia Past Surgical History Surgical History H/O wisdom tooth extraction History of kidney surgery 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 Hx of section x1 S/P cystoscopy with ureteral stent placement Social History Smoking Status: Current every day smoker tobacco type: cigarettes Smoking cigarettes per day: 5 Do You Dip or Chew Tobacco: No Hx Alcohol Use: Yes Alcohol type: wine alcohol intake frequency: holidays/special occasions only Hx Substance Use: No substance use type: marijuana Last Used Substance Other:: 6+ months ago Physical Exam Vital Signs Last Vital Signs Temp 36.5 C 09/26/21 07:32 Pulse 73 09/26/21 07:32 Resp 16 09/26/21 07:32 BP 116/76 09/26/21 07:32 Pulse Ox 97 09/26/21 07:32 Testing Laboratory Results 09/26/21 05:58 09/26/21 05:58 Urine Color Yellow 09/25/21 20:07 Urine Appearance Clear (Clear) 09/25/21 20:07 Urine pH 5.0 (4.5-7.5) 09/25/21 20:07 Ur Specific Riparius 1.022 (1.000-1.030) 09/25/21 20:07 Urine Protein Trace (Negative) H 09/25/21 20:07 Urine Glucose (UA) Negative (Negative) 09/25/21 20:07 Urine Ketones Negative (Negative) 09/25/21 20:07 Urine Nitrite Negative (Negative) 09/25/21 20:07 Ur Leukocyte Esterase 1+ (Negative) H 09/25/21 20:07 Urine WBC (Auto) >30 /hpf (0-5) H 09/25/21 20:07 Urine RBC (Auto) >30 /hpf (0-4) H 09/25/21 20:07 U Hyaline Cast (Auto) 5-10 /lpf (0-5) H 09/25/21 20:07 U Epithel Cells (Auto) >30 /lpf (0-5) H 09/25/21 20:07 Urine Bacteria (Auto) Negative (Negative) 09/25/21 20:07 09/25/21 20:07 Urine Culture - Preliminary Urine,Clean Catch Pin-point growth present, reincubating. 09/25/21 20:07 POC Ur Test NEG
[2021-09-26] MEDS ORDERED: MIDAZOLAM HCL 1 MG/ML 2ML VIAL ONE (13:03)
[2021-09-26] MEDS ORDERED: LIDOCAINE 2% 2 ML VIAL/AMP(20MG/ML) INFIL ONE (13:05)
[2021-09-26] MEDS ORDERED: ONDANSETRON INJ 2 MG/ML 2 ML VIAL ONE (13:05)
[2021-09-26] MEDS ORDERED: PROPOFOL IV EMULSION 10 MG/ML 20 ML VIAL IV ONE ×2 (13:05→13:44)
[2021-09-26] MEDS ORDERED: fentaNYL citrate 100 MCG/2 ML VIAL ONE (13:05)
[2021-09-26] MEDS ORDERED: fentaNYL citrate 100 MCG/2 ML VIAL IV PRN (13:08)
[2021-09-26] MEDS ORDERED: ATROPINE SULFATE 0.1 MG/ML 10ML SYR IV PRN (13:08)
[2021-09-26] MEDS ORDERED: HYDROmorphone INJ 1 MG/ML SYRINGE IV PRN (13:08)
[2021-09-26] MEDS ORDERED: ePHEDrine sulfate 50 MG/ML AMP IV PRN (13:08)
[2021-09-26] MEDS ORDERED: DIATRIZOATE MEGLUMINE 30% 100ML VIAL INSTIL ONE (13:49)
--- NOTE | 2021-09-26 13:51 | Post Operative Brief Note ---
PG Immediate Post Op with CF Date of Surgery September 26, 2021 Pre & Post Diagnosis Operation Date: 09/26/21 12:00 Pre-Op Diagnosis: Right Nephrolitiasis Post-Op Diagnosis: Right Nephrolitiasis I identified the patient and participated in the time-out.: Yes Procedure Cystoscopy, right retrograde pyelogram, right ureteral stent placement Operation Date: 09/26/21 12:00 Actual Procedures Cystoscopy, right retrograde pyelogram, right ureteral stent placement - Bruce Fry MD Surgeon Bruce Fry MD Paper Sales Representative None Estimated Blood Loss 0 Findings Consistent with Post-Op Diagnosis Specimens Specimen Description: None per surgeon Drains Other (6x26 R stent ) Complications none
--- NOTE | 2021-09-26 14:03 | Operative Report ---
PG Post Operative Report Pre & Post Diagnosis Operation Date: 09/26/21 12:00 Pre-Op Diagnosis: Right Nephrolitiasis Post-Op Diagnosis: Right Nephrolitiasis I identified the patient and participated in the time-out.: Yes Procedure Cystoscopy, right retrograde pyelogram with radiographic interpretation, right ureteral stent placement Operation Date: 09/26/21 12:00 Actual Procedures p Cystoscopy, right retrograde pyelogram with radiographic interpretation, right ureteral stent placement - Bruce Fry MD Surgeon Bruce Fry MD Hr Business Partner Consultant None Estimated Blood Loss 0 Findings Consistent with Post-Op Diagnosis Stone debris in bladder which was evacuated out. Evidence of cystitis cystica. Right retrograde pyelogram showed moderate to significant right hydronephrosis Right ureteral stent in appropriate position Specimens None Drains 6 Wallisian by 26 cm right ureteral stent Anesthesia Type MAC Complications none Indications 31-year-old female with a large right renal stone burden. She was previously stented and unfortunately the stent dislodged. I replaced that stent and then my partner took her to the OR for a for staged ureteroscopy. Due to her large stone burden, he recommended a second look procedure and left a stent. She unfortunately dislodged the stent as well and came in with right flank pain and a CT scan showed large right remaining stone burden with hydronephrosis and a large distal right calculus versus stone debris. Risk and benefits discussed and taken to the OR for right stent replacement. Description of Procedure After informed consent was obtained, the patient was transported operative suite. MAC anesthesia was induced. The patient was placed in dorsolithotomy position prepped and draped in a sterile fashion. They received preoperative ceftriaxone for antibiotic prophylaxis. An appropriate surgical timeout was performed. A 22 Wallisian rigid scope was inserted per urethra into the bladder. There was stone debris in the bladder which was evacuated out. There was evidence of cystitis cystica. I turned my attention the right ureteral orifice and intubated this with a 5 Wallisian open-ended catheter. A right retrograde pyelogram was shot which showed moderate to significant hydronephrosis. A sensor wire was advanced into the kidney and confirmed fluoroscopically. I opted to place a 6 Wallisian by 26 cm right ureteral stent as this is what I had done the first time and it did stay in place. A 6 Wallisian by 26 cm right ureteral stent was deployed with a good proximal coil in the renal pelvis and a good distal coil noted in the bladder, confirmed fluoroscopically and under direct visualization, respectively. The bladder was emptied and the scope was removed. This concluded the end of the case. All counts were correct at the end of the case. I was present, scrubbed, and actively participated for the entirety of the procedure. I attest to the content of the Intraoperative Record and any orders documented therein. Any exceptions are noted below.
--- NOTE | 2021-09-26 14:18 | Anesthesiology Progress Note ---
Date of Service September 26, 2021 Anesthesia Post Procedure Vital Signs Vital Signs: Temp Pulse Pulse Pulse Resp BP BP 09/26/21 14:10 36.2 C L 67 19 106/73 09/26/21 14:00 70 20 111/62 09/26/21 13:54 36.0 C L 83 16 109/65 09/26/21 07:32 36.5 C 73 16 116/76 09/26/21 00:28 36.7 C 79 14 136/97 09/26/21 00:04 73 18 120/75 09/25/21 22:06 81 18 09/25/21 21:43 82 18 135/88 09/25/21 19:43 36.4 C L 75 18 139/90 Pulse Ox 09/26/21 14:10 96 09/26/21 14:00 96 09/26/21 13:54 95 09/26/21 07:32 97 09/26/21 00:28 97 09/26/21 00:04 97 09/25/21 22:06 98 09/25/21 21:43 97 09/25/21 19:43 96 Pain Intensity Flank: Pain Intensity: 6 Vaginal: Pain Intensity: 4 Transfer of Care Handoff Completed per policy Notes Mental Status: alert / awake / arousable and participated in evaluation Patient Amnestic to Procedure: Yes Nausea / Vomiting: adequately controlled Pain: adequately controlled Airway Patency, RR, SpO2: stable & adequate BP & HR: stable & adequate Hydration State: stable & adequate Anesthetic Complications: no major complications apparent and Pt Satisfied with anesthetic care
--- NOTE | 2021-09-26 15:23 | Fluoroscopy Report ---
FL retrograde urethrogram CLINICAL HISTORY: RIGHT SIDE STENT PLACEMENT COMPARISON STUDY: No previous studies for comparison. FLUOROSCOPY TIME: 15) seconds FLUOROSCOPIC IMAGES: 3 fluoroscopic spot images FINDINGS: There is catheterization of the right ureter with placement of a double-J ureteral stent on the right. IMPRESSION: Placement of double-J ureteral stent on the right. ACT 112: Negative or not required by law. Electronically signed by: Arthur Souza M.D. 09/26/2021 3:21 PM
[2021-09-26] MEDS ORDERED: CIPROFLOXACIN 500 MG TAB PO STA (16:55)
--- NOTE | 2021-09-26 17:00 | Discharge Summary ---
Date of Service September 26, 2021 Admission HPI Per Admitting Provider 31yo female with a history of nephrolithiasis, pyelonephritis, hydronephrosis, PCOS, and prediabetes who presents with a one-day history of right-sided flank and groin pain. Patient has a history of nephrolithiasis, including right cystoscopy and ureteral stent placement on 08/31, then re-placed on 09/03. Patient was noted on follow-up with heavy stone burden and was told she would likely require staged procedures to clear it all. Patient underwent repeat lithotripsy and stent placement on the right side again on 09/20. Patient notes this fell out the next day, and it was placed again that day on 09/21. Patient notes that this morning she developed severe right-sided flank pain that radiates to the groin, and notes this feels like other stones. Patient tried taking vicodin she was dicharged with, but that it isn't helping. Patient notes associated nausea, vomiting, and hematuria. Patient does note that her symptoms have greatly improved since arriving to the ED. Patient denies fever, chills, CP, SOB, left-sided abdominal symptoms, burning with urination, bowel symptoms, or other symptoms. Principal Diagnosis Ureterolithiasis, dislodged ureteral stent Discharge Exam Constitutional WD/WN, vitals as above + morbidly obese Eyes + anicteric sclerae ENMT external ear and nose normal, oropharynx normal Neck trachea midline, no thyromegaly Respiratory normal respiratory effort, lungs clear to auscultation Cardiovascular RRR, no murmur, no edema Chest (Breasts) Chest: normal inspection of chest Gastrointestinal (Abdomen) normal bowel sounds, soft, nontender, no hepatosplenomegaly Musculoskeletal Extremities: extremities normal to inspection; no cyanosis and no clubbing Skin no rashes, warm and dry Neurologic moves all extremities and awake; no focal motor deficits Psychiatric A+Ox3, euthymic affect Lymphatic no lymphedema Discharge Data Allergies Allergy/AdvReac Type Severity Reaction Status Date / Time sulfamethoxazole Allergy Intermediate RASH Verified 09/25/21 20:55 trimethoprim Allergy Intermediate RASH Verified 09/25/21 20:55 Consultations 09/25/21 21:32 ED Decision to Admit Stat 09/25/21 22:57 Consult Urology Routine Procedures Performed Operation Date: 09/26/21 12:00 Actual Procedures p Right Ureteral Stent Insertion(Right) - Bruce Fry MD Ordered Studies 09/25/21 19:57 CT abd pelvis wo con Urgent 09/26/21 [place] cystogram Routine Hospital Course (1) Hydronephrosis, right: 31yo female with a history of nephrolithiasis, pyelonephritis, hydronephrosis, PCOS, and prediabetes who presents with a one-day history of right-sided flank and groin pain. Right-sided flank, groin pain secondary to right nephrolithiasis and severe hydroureteronephrosis CT abdomen/pelvis: right distal ureter stone (read by statrad as 10mm x 25mm) with severe right hydroureteronephrosis as well as several other right stones, no left stone/hydronephrosis Labwork notable for leukocytosis to 17.4, mild thrombocytosis, and UA significant for evidence of infection, negative Was admitted and given IV fluids, pain medication, and IV ceftriaxone Appreciate urology management-was taken to the OR for cystoscopy which revealed cystitis cystica and the right ureteral stent was exchanged, stone debris was evacuated from the bladder Postoperatively, she was doing very well and had no pain Stable for discharge home on Cipro 500 Mg p.o. twice daily x5 days Has follow-up planned with urology in 9 days for stone treatment and stent removal Continue home tamsulosin, oxybutynin Chronic conditions: Depression: continue home duloxetine PCOS: continue home OCP Impaired fasting glucose: repeat A1c ordered and pending at the time of discharge DVT ppx: SCDs Dispo: Stable for discharge to home (2) Migration of ureteral stent: (3) Nephrolithiasis: Total Time Total Time Spent Total Time Spent (In Minutes): 35 min Total Time Includes: Examination of the Patient, Discharge Planning, Medication Reconciliation and Communication With Other Providers (Urology) Discharge Plan Discharge Items Patient Disposition: Home - Self-Care Reason For Visit: R NEPHROLITHIASIS Discharge Diagnosis: Ureterolithiasis, UTI Condition on Discharge: Good Activity: Resume your previous activity Non-emergency contact: Primary Care Provider and Urologist Call non-emergency contact if: you have any medication questions, your symptoms worsen, your pain is not controlled, your pain is worsening, you have a fever and your temperature is above 101 Follow-up/Referrals: Dawna Luz CRNP [Primary Care Provider] - (Follow up within 1-2 weeks) Chance Quinn MD [Physician] - (Follow up as already scheduled at the end of September) Diet: Carb Consistent or DM2 Addtl Attending Provider Instructions: Please finish out a 5 day course of Cipro. Have your PCP follow up on the final results of your urine culture to make sure that the bacteria growing will be sensitive to Cipro. If you have worsening, pain, fevers, or any other acute concerns, please call your PCP or Urologist. Pending Studies at Discharge: Yes (Final Urine culture) Stand-Alone Forms: My [facility] [employer], Smoking Cessation Medications and DC Order Prescriptions: Continued duloxetine 40 mg capsule,delayed release(DR/EC) 40 mg PO QAM Qty: 30 RF: 5 norethindrone (contraceptive) 0.35 mg tablet 0.35 mg PO QAM RF: 0 tamsulosin [Flomax] 0.4 mg capsule 0.4 mg PO HS Qty: 30 RF: 0 oxybutynin chloride [Ditropan XL] 5 mg tablet extended release 24 hr 5 mg PO QAM RF: 0 hydrocodone-acetaminophen 5-325 mg tablet 1 tab PO Q6H PRN (Reason: pain) Qty: 15 RF: 0 multivitamin Tablet 1 tab PO QAM RF: 0 ciprofloxacin HCl [Cipro] 500 mg tablet 500 mg PO BID Qty: 10 RF: 0 Discharge Orders: Discharge Order (Routine); Ordered 09/26/21 Ordered By: Olesya Boss Admission Data Admit Date/Time: 09/25/21 23:12 Attending Provider: Olesya Boss Admit Provider: Stacia Issa Primary Care Provider: Dawna Luz Other Providers: Stacia Issa ; Bruce Fry Coding Level of Care Code D/C DAY MANAGEMENT >30 MINS Diagnoses Hydronephrosis, right N13.30 Migration of ureteral stent T83.122A Nephrolithiasis N20.0
[2021-09-26] MEDS ORDERED: cefTRIAXone SODIUM 2,000 MG in DEXTROSE 5% 50 ML IV SCH (20:00)
[2021-09-26] MEDS ORDERED: TAMSULOSIN HCL 0.4 MG CAP PO SCH (21:00)
[2021-09-27 09:50] LABS: Estimated Average Glucose 143 mg/dl; Hemoglobin A1C 6.6 % (4.5-5.6)
== END 2021-09-26 18:21 | disposition home or self-care (01) ==
LOC: ED 19:42 → 3E 19:42 → SUATTDRO 23:12 → 3E 09-26 00:19